=== PATIENT | female | born 1950 | race Caucasian/White ===

== ENCOUNTER → 2023-07-26 08:16 | Outpatient (REF) | payer MEDICARE, OTHER, SELFPAY | LOC: RAD 08:16 | PROVIDERS: ATTENDING PHYSICIAN Internal Medicine; FAMILY PHYSICIAN Internal Medicine | DX: R10.9 Unspecified abdominal pain (principal); K57.30 Diverticulosis of large intestine without perforation or abscess without bleeding; R10.30 Lower abdominal pain, unspecified | CPT/HCPCS: 74280 ==

== ENCOUNTER → 2024-01-27 10:53 | Outpatient (REF) | payer MEDICARE, OTHER, SELFPAY | LOC: WDC 10:53 | PROVIDERS: ATTENDING PHYSICIAN Obstetrics & Gynecology Gynecology; FAMILY PHYSICIAN Internal Medicine | DX: Z12.31 Encounter for screening mammogram for malignant neoplasm of breast (principal) | CPT/HCPCS: 77063; 77067 ==

== ENCOUNTER → 2024-03-13 07:18 | Outpatient (REF) | payer MEDICARE, OTHER, SELFPAY ==
[2024-03-13 09:46] LABS: % Eosinophils 4.7 % (0-6); % Immature Granulocytes 0.2 % (0-0.5); % Lymphocytes 28.8 % (20.5-51.1); % Monocytes 9.7 % (1.7-9.3); % Neutrophils 55.6 % (42.2-75.2); Absolute Basophils 0.1 10^3/uL (0-0.2); Absolute Eosinophils 0.2 10^3/uL (0-0.7); Absolute Lymphocytes 1.5 10^3/uL (1.2-3.4); Absolute Monocytes 0.5 10^3/uL (0.1-0.6); Absolute Neutrophils 2.8 10^3/uL (1.4-6.5); Hematocrit 37.5 % (37.0-47.0); Hemoglobin 13.1 g/dL (12.0-16.0); Mean Corp Hgb Conc. 34.9 g/dL (33.0-37.0); Mean Corpuscular Hgb 31.4 pg (27.0-31.0); Mean Corpuscular Volume 89.9 fL (81.0-99.0); Mean Platelet Volume 9.4 fL (7.4-10.4); Nucleated Red Blood Cells % 0 %; Platelet Count 279 10^3/uL (130-400); Red Blood Cell Count 4.17 10^6/uL (4.20-5.40); Red Cell Dist. Width 12.2 % (11.5-14.5); White Blood Cell Count 5.1 10^3/uL (4.8-10.8)
[2024-03-13 10:07] LABS: ALT (SGPT) 17 U/L (0-35); AST (SGOT) 27 U/L (14-36); Albumin 4.4 g/dl (3.5-5.0); Blood Urea Nitrogen 15 mg/dl (7-17); Calcium 9.9 mg/dl (8.4-10.2); Carbon Dioxide 28 mmol/L (22-30); Chloride 105 mmol/L (98-107); Glucose 96 mg/dl (70-99); HDL Cholesterol 65 mg/dl; LDL Cholesterol, Calculated 77 mg/dl; Phosphorus 3.6 mg/dl (2.5-4.5); Sodium 145 mmol/L (135-145); Total Cholesterol 162 mg/dl (50-199); Triglyceride 102 mg/dl (10-149); Very Low Density Lipoprotein 20 mg/dl (0-30); eGFR > 60.00
== END ==
LOC: HWLAB 07:18
PROVIDERS: ATTENDING PHYSICIAN Internal Medicine Cardiovascular Disease; FAMILY PHYSICIAN Internal Medicine
DX: R42 Dizziness and giddiness (principal); I44.7 Left bundle-branch block, unspecified; E78.2 Mixed hyperlipidemia
CPT/HCPCS: 36415; 80061; 80069; 84443; 84450; 84460; 85025

== ENCOUNTER → 2024-09-17 07:22 | Outpatient (REF) | payer MEDICARE, OTHER, SELFPAY ==
[2024-09-17 10:07] LABS: ALT (SGPT) 18 U/L (0-35); AST (SGOT) 25 U/L (14-36); Albumin 4.2 g/dl (3.5-5.0); Alkaline Phosphatase 67 U/L (38-126); Blood Urea Nitrogen 15 mg/dl (7-17); Carbon Dioxide 27 mmol/L (22-30); Chloride 109 mmol/L (98-107); Glucose 94 mg/dl (70-99); HDL Cholesterol 55 mg/dl; LDL Cholesterol, Calculated 87 mg/dl; Sodium 145 mmol/L (135-145); Total Bilirubin 0.9 mg/dl (0.2-1.3); Total Cholesterol 167 mg/dl (50-199); Total Protein 6.7 g/dl (6.3-8.2); Triglyceride 129 mg/dl (10-149); Very Low Density Lipoprotein 25 mg/dl (0-30); eGFR > 60.00
[2024-09-17 11:20] LABS: Glycohemoglobin (HgbA1c) 5.5 % (4.0-5.6)
== END ==
LOC: REG 07:22
PROVIDERS: ATTENDING PHYSICIAN Internal Medicine
DX: E78.5 Hyperlipidemia, unspecified (principal); R73.01 Impaired fasting glucose
CPT/HCPCS: 36415; 80053; 80061; 83036

== ENCOUNTER → 2024-10-15 06:35 | Outpatient (REF) | payer MEDICARE, OTHER, SELFPAY | LOC: RAD 06:35 | PROVIDERS: ATTENDING PHYSICIAN Surgery; FAMILY PHYSICIAN Internal Medicine | DX: K57.32 Diverticulitis of large intestine without perforation or abscess without bleeding (principal); R10.30 Lower abdominal pain, unspecified | CPT/HCPCS: 74177; Q9967 ==

== ENCOUNTER 2024-11-16 09:11 | Inpatient (IN) | payer MEDICARE, OTHER, SELFPAY ==
[2024-10-27 08:57] LABS: Hematocrit 38.7 % (37.0-47.0); Hemoglobin 13.2 g/dL (12.0-16.0); Mean Corp Hgb Conc. 34.1 g/dL (33.0-37.0); Mean Corpuscular Hgb 30.8 pg (27.0-31.0); Mean Corpuscular Volume 90.2 fL (81.0-99.0); Mean Platelet Volume 9.8 fL (7.4-10.4); Platelet Count 287 10^3/uL (130-400); Red Blood Cell Count 4.29 10^6/uL (4.20-5.40); Red Cell Dist. Width 12.2 % (11.5-14.5); White Blood Cell Count 5.7 10^3/uL (4.8-10.8)
[2024-10-27 09:17] LABS: ALT (SGPT) 16 U/L (0-35); AST (SGOT) 22 U/L (14-36); Albumin 4.7 g/dl (3.5-5.0); Alkaline Phosphatase 57 U/L (38-126); Blood Urea Nitrogen 15 mg/dl (7-17); Calcium 9.8 mg/dl (8.4-10.2); Carbon Dioxide 29 mmol/L (22-30); Chloride 107 mmol/L (98-107); Glucose 99 mg/dl (70-99); Potassium 4.2 mmol/L (3.5-5.1); Sodium 145 mmol/L (135-145); Total Protein 7.4 g/dl (6.3-8.2); eGFR > 60.00
[2024-10-27 13:27] VITALS: BMI 25.8
--- NOTE | 2024-10-27 16:28 | PTCARENOTE ---
Abn ECG, Dr. Kaur made aware, Cardiology clearance requested, Emily at Dr. Kasper's office notified.
[2024-11-16] VITALS (15 sets, daily range): BP systolic 122–163; BP diastolic 58–84; BMI 25.8; BMI 26.8
[2024-11-16] MEDS: NORMOSOL-R/PLASMALYTE-A 1000 IV (09:52)
[2024-11-16] MEDS: TYLENOL 1000 MG PO (09:53)
[2024-11-16] MEDS: ENTEREG 12 MG PO (09:53)
--- NOTE | 2024-11-16 10:30 | HP.FOC2 ---
Focused History & Physical
Chief Complaint
HPI:
Chief Complaint: Chronic sigmoid diverticulitis
HPI / Indication for Planned Procedure: Patient is a 74-year-old female with a progressive history of worsening intermittent lower abdominal pain and change in bowel habits. Over the past few years she has been experiencing episodes of significant
left lower abdominal cramping pains, bloating distention and erratic stools. These are typically acute in onset for 1 to 2 days up to a week with subsequent urgency to have bowel movements and multiple incomplete stools throughout the day of
varying consistency but tend to be softer looser in nature. She has undergone extensive GI evaluations and endoscopic findings have been notable for a rigid sigmoid colon with tight angulations requiring careful navigation and utilization of a
smaller caliber EGD scope felt to likely represent chronic diverticular inflammation.
After lengthy discussions with the patient regarding both operative and nonoperative management options the patient does wish to pursue sigmoidectomy please see office visit note for full details regarding her office conversations and proceeding
with today's operative procedure.
Relevant Past Medical History: Other (History of GERD, hyperlipidemia, depression, paroxysmal SVT, gastroparesis)
Relevant Social History: Negative
Relevant Family History: Negative
Relevant Past Surgical History: Positive for (Total hysterectomy, appendectomy, sinus surgery, hiatal hernia repair with toupee fundoplication, knee replacement)
Review of Systems
Review of Pertinent Systems: All Systems Negative
Medication
See Medication form for detailed medications: Yes
Medication List (including Herbals & OTC):
metoprolol succinate 25 mg tablet,extended release 24 hr 25 mg PO DAILY 11/29/20
rosuvastatin 5 mg tablet 5 mg PO DAILY 11/29/20
Prevagen 1 dose PO DAILY 11/09/24
ascorbic acid (vitamin C) 100 mg tablet (Vitamin C) 100 mg PO DAILY 11/09/24
bisacodyl 5 mg tablet,delayed release (Dulcolax (bisacodyl)) 5 mg PO ONCE 11/09/24
coenzyme Q10 30 mg capsule 30 mg PO DAILY 11/09/24
mirtazapine 15 mg tablet 15 mg PO HS 11/09/24
omeprazole 20 mg tablet,delayed release 20 mg PO DAILY 11/09/24
peg 3350-electrolytes 236 gram-22.74 gram-6.74 gram-5.86 gram solution (GaviLyte-G) 1 ml PO DIRECTED 11/09/24
Medications Reviewed: Yes
Allergies and Reactions
Patient has Allergies: Yes
Noted Allergies and Reactions:
Allergy/AdvReac Type Severity Reaction Status Date / Time
aripiprazole (From Abilify) Allergy Uncontrolled Verified 11/16/24 09:25
Tremors
Gadolinium-Containing Allergy Anaphylaxis Verified 11/16/24 09:25
Contrast Medi
hylan G-F 20 (From Synvisc) Allergy Swelling Verified 11/16/24 09:25
penicillin G Allergy Itching Unverified 11/16/24 09:25
Penicillins Allergy Itching Unverified 11/16/24 09:25
shellfish derived Allergy Anaphylaxis Verified 11/16/24 09:25
Neuroleptics Allergy Unknown Uncoded 11/16/24 09:25
Pertinent Physical Exam
All Other Systems: Negative
Head/Neck: Normal
Lungs: Normal
Heart: Normal
Abdomen: Normal
Extremities: Normal
Neurological: Normal
Diagnosis / Assessment
74-year-old female with intermittent chronic sigmoid diverticulitis presenting for sigmoidectomy
Plan / Procedure
Laparoscopic assisted sigmoidectomy
Anesthesia/Sedation to be done by Anesthesia Provider: Yes
--- NOTE | 2024-11-16 10:33 | W.SUR.PREOP ---
Pre-Operative Surgical Note
-
I have examined this patient prior to the performance of the scheduled procedure.
The patient's condition is unchanged from the time of the current History and
Physical and the patient is able to undergo the scheduled procedure.
--- NOTE | 2024-11-16 16:10 | W.IMMPOSTOP ---
Addendum entered and electronically signed by Hadley Kasper MD 11/16/24 16:31:
#[id number]
Original Note:
Surgical Immed Post Op Note
-
Primary Surgeon: Hadley Kasper MD
Assisting Surgeon: Marshall Ramirez MD, PGY 1
Pre-op Diagnosis: Chronic Sigmoid Diverticulitis
Post-op Diagnosis: Chronic Sigmois Diverticulitis; Extensive adhesions
Procedure Performed: Laparoscopic sigmoidectomy; laparoscopic extensive lysis of adhesions
Anesthesia Type: GETA +0.25% Marcaine
Specimen / Cultures: Sigmoid colon/none
Estimated Blood Loss: 26 mL
Complications: None immediate
Operative Findings: Innumerable adhesions including omentum to anterior abdominal wall and distal small bowel throughout the entire pelvis and adjacent to sigmoid colon and mesentery. Laparoscopic adhesiolysis/enterolysis required 2+ hours of
operative time until sigmoid colon was exposed and pelvis to proceed with sigmoidectomy. No enterotomies or serosal repairs required. Sigmoid colon redundant and adherent to itself with chronic adhesions and thickening suggestive of chronic
sigmoid diverticulitis. No abscess, no active infectious component. Sigmoidectomy completed. Mobilization up to splenic flexure and portions of but not complete mobilization of splenic flexure. 28 EEA colorectal end-to-end anastomosis. Air leak
test negative.
[2024-11-16 17:03] LABS: Glucose - Point of Care 125 mg/dl (70-99)
[2024-11-16] MEDS: NSS 1000 IV (18:32)
--- NOTE | 2024-11-16 18:53 | PTCARENOTE ---
Patient admitted to [facility] from PACU s/p laparoscopic sigmoidectomy. Patient drowsy but wakes to verbal stimuli, AAOX3, denies any pain at this time. Incision sites on abdomen well approximated with surgical adhesive present. Bob in place draining
clear yellow urine, NSS infusing through R wrist IV at 110ml/hr, SCDs in place. VSS. Patient NPO with sips. Patient oriented to room and call duckworth, at bedside updated on plan of care.
[2024-11-16] MEDS: REMERON 22.5 MG PO (22:43)
[2024-11-17] MEDS: NSS 1000 IV ×3 (03:20→23:41)
[2024-11-17 03:32] VITALS: BP 137/65
[2024-11-17] MEDS: MYLICON 80 MG PO (03:36)
[2024-11-17 06:11] LABS: Glucose - Point of Care 112 mg/dl (70-99)
--- NOTE | 2024-11-17 07:13 | W.PN.GS2 ---
Today's Communication / Plan
-
`
Assessment / Plan
-
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
h/o pSVT - metoprolol
AFVSS
doing well this AM
Plan: multimodal pain control options
encourage OOBTC/ambulation and IS use
start on clear liquid diet but monitor for return of post op GI function
reduce IVF rate
maintain crow until POD#2 d/t extensive pelvic dissection/adhesions
AM labs pending
lovenox/SCDs/ambulation for VTEp
protonix for GIp and h/o GERD
Subjective Data
-
Date of Service: November 17, 2024
pt seen and examined
doing well post op
mild post op incisional pain
no nausea
hungry
Objective Data
-
Intake and Output
11/16/24 11/17/24 11/18/24
06:59 06:59 06:59
Intake Total 200 / 200
Output Total 925 / 925
Balance -725 / -725
Intake:
IV fluids (Total) 200 / 200
Normosol 200 / 200
Output:
Urine, Crow 925 / 925
Vital Signs
Temp Pulse Resp BP Pulse Ox
99.1 F 93 16 137/65 97
11/17/24 03:32 11/17/24 03:32 11/17/24 03:32 11/17/24 03:32 11/17/24 03:32
Calcium 9.8 mg/dl (8.4-10.2) 10/27/24 07:53
Total Bilirubin 1.0 mg/dl (0.2-1.3) 10/27/24 07:53
AST 22 U/L (14-36) 10/27/24 07:53
ALT 16 U/L (0-35) 10/27/24 07:53
Alkaline Phosphatase 57 U/L (38-126) 10/27/24 07:53
Total Protein 7.4 g/dl (6.3-8.2) 10/27/24 07:53
Albumin 4.7 g/dl (3.5-5.0) 10/27/24 07:53
Physical Exam
-
NAD AAOx3
ABD: soft, ND, minimal incisional tenderness
incisions with glue dressings, no ecchymosis, no erythema
crow with clear yellow urine
[2024-11-17 07:16] LABS: Hematocrit 33.8 % (37.0-47.0); Hemoglobin 11.7 g/dL (12.0-16.0); Mean Corp Hgb Conc. 34.6 g/dL (33.0-37.0); Mean Corpuscular Volume 89.7 fL (81.0-99.0); Mean Platelet Volume 9.2 fL (7.4-10.4); Platelet Count 257 10^3/uL (130-400); Red Blood Cell Count 3.77 10^6/uL (4.20-5.40); Red Cell Dist. Width 12.2 % (11.5-14.5); White Blood Cell Count 16.3 10^3/uL (4.8-10.8)
[2024-11-17 07:45] VITALS: BP 126/59
[2024-11-17 07:45] LABS: Blood Urea Nitrogen 14 mg/dl (7-17); Carbon Dioxide 24 mmol/L (22-30); Chloride 111 mmol/L (98-107); Estimated Creatinine Clearance 49 ml/min; Glucose 105 mg/dl (70-99); Potassium 4.4 mmol/L (3.5-5.1); Sodium 142 mmol/L (135-145); eGFR > 60.00
[2024-11-17] MEDS: TOPROL XL 25 MG PO (08:05)
[2024-11-17] MEDS: NSS (PRESERVATIVE FREE) 10 ML IV (08:05)
[2024-11-17] MEDS: PROTONIX IV 40 MG IV (08:05)
[2024-11-17] MEDS: TYLENOL 650 MG PO (08:06)
[2024-11-17] MEDS: ENTEREG 12 MG PO ×2 (09:23→19:55)
--- NOTE | 2024-11-17 14:04 | CM ---
Reviewed the chart notes and spoke with the patient at the bedside. The patient resides in a three story home with two steps to enter. The patient reports no DME/VN/SNF. The patient confirmed her pharmacy of choice is [facility]. CM continues to
be available to patient/family and is monitoring medical plan for needs at discharge.
Plan: Discharge plans will depend on the patient's progress.
[2024-11-17 15:16] VITALS: BMI 26.8
[2024-11-17 15:35] VITALS: BP 124/60
[2024-11-17] MEDS: LOVENOX 40 MG SC (18:22)
[2024-11-17] MEDS: TORADOL 10 MG IV (19:56)
[2024-11-17] MEDS: REMERON 22.5 MG PO (21:00)
[2024-11-17 23:51] VITALS: BP 121/52
[2024-11-18 06:00] VITALS: BMI 24.7
[2024-11-18 06:24] LABS: Hematocrit 31.6 % (37.0-47.0); Hemoglobin 10.7 g/dL (12.0-16.0); Mean Corp Hgb Conc. 33.9 g/dL (33.0-37.0); Mean Corpuscular Hgb 31.1 pg (27.0-31.0); Mean Corpuscular Volume 91.9 fL (81.0-99.0); Mean Platelet Volume 9.9 fL (7.4-10.4); Platelet Count 235 10^3/uL (130-400); Red Blood Cell Count 3.44 10^6/uL (4.20-5.40); Red Cell Dist. Width 12.5 % (11.5-14.5); White Blood Cell Count 9.8 10^3/uL (4.8-10.8)
[2024-11-18 06:38] LABS: Blood Urea Nitrogen 13 mg/dl (7-17); Calcium 8.6 mg/dl (8.4-10.2); Carbon Dioxide 25 mmol/L (22-30); Chloride 114 mmol/L (98-107); Estimated Creatinine Clearance 49 ml/min; Glucose 87 mg/dl (70-99); Potassium 3.8 mmol/L (3.5-5.1); Sodium 143 mmol/L (135-145); eGFR > 60.00
--- NOTE | 2024-11-18 07:11 | W.PN.GS2 ---
Today's Communication / Plan
-
`
Assessment / Plan
-
Assessment: 74 y/o female POD#2 s/p lap sigmoidectomy and extensive BRENDA for sigmoid stricture - diverticular/adhesions
h/o pSVT - metoprolol
AFVSS
early signs of GI recovery
post op pain likely incisional or bowel cramps
acute blood loss anemia secondary to surgical blood loss and also dilutional effects of IVFs - repeat H&H tomorrow AM
remaining labs unremarkable
Plan: multimodal pain control options
continue OOBTC/ambulation and IS use
okay to shower today
full liquid diet today monitor for return of post op GI function; continue entereg
okay to stop IVFs with PO liquid intake
crow out - DTV
lovenox/SCDs/ambulation for VTEp
protonix for GIp and h/o GERD
Subjective Data
-
Date of Service: November 18, 2024
pt seen and examined
some colicky lower abdominal pain overnight and this AM
no nausea
tolerating clears and requesting next diet step
passing flatus regularly; no BMs yet
Objective Data
-
Intake and Output
11/17/24 11/18/24 11/19/24
06:59 06:59 06:59
Intake Total 200 / 200 1860 / 1860
Output Total 925 / 925 1345 / 1345
Balance -725 / -725 515 / 515
Intake:
Oral fluids 900 / 900
IV fluids (Total) 200 / 200 960 / 960
Normosol 200 / 200
Output:
Urine, Crow 925 / 925 1345 / 1345
Vital Signs
Temp Pulse Resp BP Pulse Ox
99.3 F 79 16 121/52 94
11/17/24 23:51 11/17/24 23:51 11/17/24 23:51 11/17/24 23:51 11/18/24 01:20
Lab Results
11/18/24 05:25
11/18/24 05:25
Calcium 8.6 mg/dl (8.4-10.2) 11/18/24 05:25
Total Bilirubin 1.0 mg/dl (0.2-1.3) 10/27/24 07:53
AST 22 U/L (14-36) 10/27/24 07:53
ALT 16 U/L (0-35) 10/27/24 07:53
Alkaline Phosphatase 57 U/L (38-126) 10/27/24 07:53
Total Protein 7.4 g/dl (6.3-8.2) 10/27/24 07:53
Albumin 4.7 g/dl (3.5-5.0) 10/27/24 07:53
Physical Exam
-
NAD AAOx3
ABD: softly distended, mild TTP lower abdomen, guarding only at incision sites
incision with glue dressings
Patient has a crow catheter: No
[2024-11-18 07:35] VITALS: BP 109/73
[2024-11-18] MEDS: TOPROL XL 25 MG PO (07:39)
[2024-11-18] MEDS: ENTEREG 12 MG PO ×2 (07:39→20:12)
[2024-11-18] MEDS: PROTONIX IV 40 MG IV (07:39)
[2024-11-18] MEDS: TORADOL 10 MG IV ×2 (07:39→14:52)
[2024-11-18] MEDS: NSS (PRESERVATIVE FREE) 10 ML IV (07:39)
--- NOTE | 2024-11-18 12:49 | CM ---
Reviewed the chart notes and spoke with the patient at the bedside. Diet advanced today to full liquid. CM continues to be available to patient/family and is monitoring medical plan for needs at discharge.
Plan: Discharge plan to home when medically stable. No needs anticipated at this time.
[2024-11-18 15:20] VITALS: BP 121/55
[2024-11-18] MEDS: LOVENOX 40 MG SC (17:01)
[2024-11-18] MEDS: FLUSH (NSS) 1 FLUSH IV (20:15)
[2024-11-18] MEDS: REMERON 22.5 MG PO (22:04)
[2024-11-18 23:04] VITALS: BP 120/61
[2024-11-19] MEDS: TORADOL 10 MG IV ×2 (05:03→13:05)
[2024-11-19] MEDS: FLUSH (NSS) 2 FLUSH IV (05:04)
[2024-11-19 07:24] VITALS: BP 122/62
--- NOTE | 2024-11-19 07:56 | W.PN.GS2 ---
Today's Communication / Plan
-
`
Assessment / Plan
-
Assessment: 74 y/o female POD#3 s/p lap sigmoidectomy and extensive BRENDA for sigmoid stricture - diverticular/adhesions
h/o pSVT - metoprolol
AFVSS
doing well with post op recovery, bowel function returning
Plan: multimodal pain control options
continue OOBTC/ambulation and IS use
okay to shower today
low residue diet; stop entereg
lovenox/SCDs/ambulation for VTEp
protonix for GIp and h/o GERD
probable d/c in the next 24hrs-26hrs
Subjective Data
-
Date of Service: November 19, 2024
pt seen and examined
multiple loose/liquid BM yesterday afternoon; none overnight
incisional pain with movement otherwise comfortable while resting
voiding
Objective Data
-
Intake and Output
11/18/24 11/19/24 11/20/24
06:59 06:59 06:59
Intake Total 1860 / 1860 960 / 960
Output Total 1345 / 1345
Balance 515 / 515 960 / 960
Intake:
Oral fluids 900 / 900 960 / 960
IV fluids (Total) 960 / 960
Output:
Urine, Bob 1345 / 1345
Other:
Number of approximated MODERATE 4
amounts of urine
Number of approximated LARGE 1
amounts of urine
Number of unmeasured liquid
stools
Rectum 7
Vital Signs
Temp Pulse Resp BP Pulse Ox
98.6 F 80 16 122/62 95
11/19/24 07:24 11/19/24 07:24 11/19/24 07:24 11/19/24 07:24 11/19/24 07:24
Lab Results
06/11/25 05:25
11/18/24 05:25
Calcium 8.6 mg/dl (8.4-10.2) 11/18/24 05:25
Total Bilirubin 1.0 mg/dl (0.2-1.3) 10/27/24 07:53
AST 22 U/L (14-36) 10/27/24 07:53
ALT 16 U/L (0-35) 10/27/24 07:53
Alkaline Phosphatase 57 U/L (38-126) 10/27/24 07:53
Total Protein 7.4 g/dl (6.3-8.2) 10/27/24 07:53
Albumin 4.7 g/dl (3.5-5.0) 10/27/24 07:53
Physical Exam
-
NAD AAOx3
ABD: soft, ND, only localized incisional tenderness
incisions with glue dressings, no erythema, no drainage
[2024-11-19] MEDS: PROTONIX 20 MG PO (08:05)
[2024-11-19] MEDS: TOPROL XL 25 MG PO (08:05)
[2024-11-19] MEDS: TYLENOL 650 MG PO (08:13)
--- NOTE | 2024-11-19 09:43 | CM ---
Addendum entered by Genia Reynoso RN 11/19/24 16:08:
IMM reviewed.
Original Note:
Reviewed the chart notes. Patient ambulating in hallway ad dorothy. The patient's diet advanced to low residue. CM continues to be available to patient/family and is monitoring medical plan for needs at discharge.
Plan: Discharge to home when medically stable. No needs anticipated at this time.
[2024-11-19 15:41] VITALS: BP 126/78
[2024-11-19] MEDS: LOVENOX 40 MG SC (17:00)
[2024-11-19] MEDS: REMERON 22.5 MG PO (21:02)
[2024-11-19 23:24] VITALS: BP 128/68
[2024-11-20 07:10] VITALS: BP 131/65
[2024-11-20] MEDS: TOPROL XL 25 MG PO (07:49)
[2024-11-20] MEDS: PROTONIX 20 MG PO (07:49)
--- NOTE | 2024-11-20 08:11 | W.PN.GS2 ---
Today's Communication / Plan
-
dispo planning
Assessment / Plan
-
Assessment: 74 y/o female POD#4 s/p lap sigmoidectomy and extensive BRENDA for sigmoid stricture - diverticular/adhesions
h/o pSVT - metoprolol
AFVSS
doing well with post op recovery, bowel function returning
Plan: multimodal pain control options
continue OOBTC/ambulation and IS use
okay to shower
low residue diet as tolerated
lovenox/SCDs/ambulation for VTEp
protonix for GIp and h/o GERD
d/c to home
Subjective Data
-
Date of Service: November 20, 2024
Patient seen and examined at bedside. Denies n/v. Passing flatus. Tolerating diet, but eating small amounts. Intermittent burning discomfort at Pfannenstiel incision. Passing flatus, had a formed BM last night.
Objective Data
-
Intake and Output
11/19/24 11/20/24 11/21/24
06:59 06:59 06:59
Intake Total 960 / 960 600 / 600
Balance 960 / 960 600 / 600
Intake:
Oral fluids 960 / 960 600 / 600
Other:
Number of approximated MODERATE 4 5
amounts of urine
Number of approximated LARGE 1
amounts of urine
Number of unmeasured liquid
stools
Rectum 7
Vital Signs
Temp Pulse Resp BP Pulse Ox
98.9 F 81 17 128/68 95
11/19/24 23:24 11/19/24 23:24 11/19/24 23:24 11/19/24 23:24 11/19/24 23:24
Lab Results
11/18/24 05:25
11/18/24 05:25
Calcium 8.6 mg/dl (8.4-10.2) 11/18/24 05:25
Total Bilirubin 1.0 mg/dl (0.2-1.3) 10/27/24 07:53
AST 22 U/L (14-36) 10/27/24 07:53
ALT 16 U/L (0-35) 10/27/24 07:53
Alkaline Phosphatase 57 U/L (38-126) 10/27/24 07:53
Total Protein 7.4 g/dl (6.3-8.2) 10/27/24 07:53
Albumin 4.7 g/dl (3.5-5.0) 10/27/24 07:53
Physical Exam
-
NAD AAOx3
ABD: soft, ND, only localized incisional tenderness
incisions with glue dressings, no erythema, no drainage, mild ecchymosis
--- NOTE | 2024-11-20 08:15 | W.DS.TRANS ---
Addendum entered and electronically signed by RAKAN Bermudez 11/20/24 09:39:
dictated #[id number]
Original Note:
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
-
Discharge Instructions:
Sleep Apnea Risk Low
Discharge Diagnosis/Procedures Laparoscopic sigmoidectomy
Diet As tolerated,Low Fiber
Additional Diets Smaller meals initially after surgery. Low
fiber foods for the first couple weeks.
Activity No strenuous activity
Additional Activity No lifting over 20 pounds for 4 to 6 weeks
postoperatively. Routine daily activities,
walking, standing, stairs are all okay as
tolerated.
Driving Restrictions No driving for 1 week
Bathing Restrictions OK to Shower
Wound Care Glue at surgical sites typically peels off in 2
to 3 weeks
Instructions:
Stand-Alone Forms:
Changes to Home Medications: No
Discharge Medications:
DC Medications w/original date entered in [facility]
metoprolol succinate 25 mg tablet,extended release 24 hr 25 mg PO DAILY Blood Pressure 11/29/20
rosuvastatin 5 mg tablet 5 mg PO DAILY High Cholesterol 11/29/20
Prevagen 1 dose PO DAILY Supplement 11/09/24
ascorbic acid (vitamin C) 100 mg tablet (Vitamin C) 100 mg PO DAILY Supplement 11/09/24
coenzyme Q10 30 mg capsule 30 mg PO DAILY Supplement 11/09/24
mirtazapine 15 mg tablet 22.5 mg PO HS Mental Health/Anxiety 11/09/24
omeprazole 20 mg tablet,delayed release 20 mg PO DAILY GERD 11/09/24
acetaminophen 325 mg tablet 650 mg (2 x 325 mg) PO Q4HPRN PRN mild pain #1 tab 11/20/24
ibuprofen 200 mg tablet 400 - 600 mg (2 - 3 x 200 mg) PO Q6HPRN PRN moderate pain #1 tab 11/20/24
oxycodone 5 mg tablet 5 mg PO Q4HPRN PRN breakthrough/severe pain #8 tabs 11/20/24
Home Medication Changes
Pending Results: No
--- NOTE | 2024-11-20 09:39 | CM ---
MD entered order for discharge.
Spoke with pt she said she was ready for discharge today to home.
Her yesenia Padilla will drive her home today .
Offered VN she declined need.
PLAN Home no needs
[2024-11-20] MEDS: TYLENOL 650 MG PO (09:56)
== END 2024-11-20 10:03 | disposition home or self-care (01) | DRG 330 ==
LOC: 2 NORTH 09:11
PROVIDERS: ADMITTING PHYSICIAN Surgery; FAMILY PHYSICIAN Internal Medicine; REFERRING PHYSICIAN Internal Medicine Cardiovascular Disease
PROC: 0DTN4ZZ Resection of Sigmoid Colon, Percutaneous Endoscopic Approach (ICD-10-PCS; 2024-11-16)
PROC: 0DNU4ZZ Release Omentum, Percutaneous Endoscopic Approach (ICD-10-PCS; 2024-11-16)
DX: K57.32 Diverticulitis of large intestine without perforation or abscess without bleeding (principal); D62 Acute posthemorrhagic anemia; E78.5 Hyperlipidemia, unspecified; Z90.710 Acquired absence of both cervix and uterus; Z96.659 Presence of unspecified artificial knee joint; Z88.0 Allergy status to penicillin; K21.9 Gastro-esophageal reflux disease without esophagitis; N73.6 Female pelvic peritoneal adhesions (postinfective)
CPT/HCPCS: 88307; 36415; 80048; 80053; 82962; 85027; 86850; 86900; 86901; 93005; J1335

== ENCOUNTER 2024-11-26 08:33 | Inpatient (IN) | payer MEDICARE, OTHER, SELFPAY ==
[2024-11-23] VITALS (13 sets, daily range): BP systolic 114–165; BP diastolic 58–93; BMI 26.2; BMI 26.3
--- NOTE | 2024-11-23 08:04 | ED.GENMED ---
History of Present Illness
<Toshia Bustos HEALTHCARE ECONOMICS MANAGER - Last Filed: 11/23/24 18:10>
General
Chief Complaint: Post Operative Problem(s)
Source: patient and physician
Exam Limitations: none
Time Seen by Provider: 11/23/24 08:03
Nursing documentation reviewed up to this point in time: agreed with
History of Present Illness
History of Present Illness:
74 yo female w hx of HTN, HLD, MVP, BBB, GERD, gastroparesis, Seratonin syndrome, anxiety/depression, appendectomy, hysterectomy, Lap sigmoidectomy 11/16/24 for rigid sigmoid colon/sigmoid stricture and years of difficulty moving bowels, is here for
sudden onset yesterday a.m. of nausea, sweating, profuse watery non bloody diarrhea. Denies fever. Has had pain across upper abdomen, worse centrally 'like a stomach ache.' Has not vomited.
Past History
<Toshia Bustos, HEALTHCARE ECONOMICS MANAGER - Last Filed: 11/23/24 18:10>
Past History
ED Past Medical History: GERD, HTN, Hypercholesterolemia, Psychiatric (Anxiety/depression) and Other (Diverticulitis)
ED Past Surgical History: Appendectomy, Bowel resection, Cardiac and Orthopedic
Social History
Tobacco: Non-smoker
Alcohol: None
Personal:
Living: with family
Review of Systems
<Toshia Bustos HEALTHCARE ECONOMICS MANAGER - Last Filed: 11/23/24 18:10>
Review of Systems
Allergies reviewed?: Yes
All Other Systems: ROS reviewed and negative except as documented in HPI and ROS
Constitutional: Denies fever or chills
Respiratory: Denies trouble breathing
Cardiac: Denies chest pain
ABD/GI: Reports abdominal pain, nausea and diarrhea; Denies vomiting, bloody stools or black stools
: Denies dysuria, difficulty voiding or urgency
Musculoskeletal: Reports no symptoms
Skin: Reports no symptoms
Neurological: Reports no symptoms
Phy Exam
<Toshia Bustos, HEALTHCARE ECONOMICS MANAGER - Last Filed: 11/23/24 18:10>
Physical Exam
Physical Exam:
GENERAL: No acute distress. A&Ox3.
CONSTITUTIONAL: Afebrile.
EYES: clear, conjunctivae normal
ENMT: moist mucus membranes, Pharynx nl
RESPIRATORY: Regular respirations, nonlabored, lungs clear.
CARDIOVASCULAR: Regular rate and rhythm, no murmurs, no rubs.
GI: Soft, mildly rotund, tender mid upper abdomen, normal BS
MUSCULOSKELETAL: Moves with ease. Well perfused.
SKIN: Warm, dry, pale. Abdominal incisions healing well.
PSYCH: Normal mood and affect. Well kept, interactive and appropriate
NEUROLOGIC: Awake, alert and oriented. No focal neurological deficits
Course
<Toshia Bustos, HEALTHCARE ECONOMICS MANAGER - Last Filed: 11/23/24 18:10>
Orders/Labs/Results
Orders:
Orders
11/23/24 Breakfast
NPO
Allow oral meds: Yes
Allow clear liquids: Sips of Clears
11/23/24 08:17
Complete Blood Count/With Diff Urgent
Comprehensive Metabolic Panel Urgent
11/23/24 08:29
Iohexol [Omnipaque] See Protocol PO NOW STA
11/23/24 08:30
0.9% Sodium Chloride 1000 ml [Nss] 1,000 ml IV BOLUS
Ondansetron Injectable [Zofran] 4 mg IV NOW STA
11/23/24 08:37
Lipase Urgent
11/23/24 10:27
Urinalysis Reflex To Culture Urgent
Date Specimen was Collected: 11/23/24
Time Specimen was Collected: 10:26
Urine Microscopic Reflex Cult Urgent
Urine Culture Urgent
ELEAZAR Source: U
Specimen Description:
Date Specimen was Collected: 11/23/24
Time Specimen was Collected: 10:26
11/23/24 10:30
CT Abd/pel W Iv And Oral Contr Urgent
Comment:
Reason For Exam: PLEASE INCLUDE RECTAL CONTRAST
11/23/24 10:43
STOOL [C difficile Antigen & Toxins] Urgent
ELEAZAR Source: Feces/Stool
Specimen Description:
Date Specimen was Collected: 11/23/24
Time Specimen was Collected: 10:39
Stool Culture Urgent
ELEAZAR Source: Feces/Stool
Specimen Description:
Date Specimen was Collected: 11/23/24
Time Specimen was Collected: 10:39
11/23/24 13:59
Admit Patient As Directed
Co-Sign Provider:
Level of Care: Observation services
Assign to:: Medical/Surgical
Physician / Group: Dr. Penn
Diagnosis: Partial small bowel obstruction
Code Status As Directed
Resuscitation Status: Full Code
HYDROmorphone [Dilaudid] 0.5 mg IV Q2HPRN PRN
Ketorolac [Toradol] 10 mg IV Q6HPRN PRN
Metoprolol Xl [Toprol Xl] 25 mg PO NOW STA
Activity As Directed
Activity Level: Out of Bed-Early Mobility
Intake/ Output As Directed
Frequency: Per unit guidelines
Vital Signs As Directed
Frequency: Per unit guidelines
PRN Pain Medication Management As Directed
May give lesser potent ordered pain med per pt: Yes
preference::
Protocol:: Medication orders for pain may be administered in a
manner that supports deferring to patient preference
when the pt is:
- Requesting an ordered lesser potent pain medication.
Least to most potent pain medications are defined
as: acetaminophen < NSAID < tramadol < opioids
(morphine, oxycodone, hydromorphone).
- Requesting a lesser dose of the same medication IF
ORDERED.
- Requesting a less intrusive route of administration
if both routes are prescribed by the provider (PO <
IV).
11/23/24 14:00
Normosol (Mult Electrolytes) [Normosol-R/Plasmalyte-A] 1,000 ml IV 100 mls/hr
Pneumatic Compression Sleeves As Directed
Type: Thigh high
DX Deep Vein Thrombosis Video Routine
11/23/24 14:30
Ondansetron Injectable [Zofran] 4 mg IV Q6HPRN PRN
11/23/24 15:00
0.9% Sodium Chloride [Nss (Preservative Free)] 10 ml IV DAILY
Pantoprazole [Protonix IV] 40 mg IV DAILY
11/23/24 16:00
Acetaminophen [Tylenol] 650 mg PO Q4HWA
11/23/24 20:00
Heparin 5,000 units SC Q12
11/23/24 22:00
Mirtazapine [Remeron] 22.5 mg PO HS
11/24/24 06:41
Basic Metabolic Panel IN AM
Complete Blood Count/With Diff IN AM
Magnesium IN AM
Phosphorus IN AM
11/25/24 06:00
Basic Metabolic Panel IN AM
Complete Blood Count/With Diff IN AM
11/26/24 06:00
Basic Metabolic Panel IN AM
Complete Blood Count/With Diff IN AM
Abnormal Lab Results
11/23/24 11/23/24
08:17 10:27
WBC 14.3 H 10^3/uL
(4.8-10.8)
Absolute Neuts (auto) 11.4 H 10^3/uL
(1.4-6.5)
Absolute Monos (auto) 0.9 H 10^3/uL
(0.1-0.6)
Neutrophils % 79.4 H %
(42.2-75.2)
Lymphocytes % 9.5 L %
(20.5-51.1)
Chloride 109 H mmol/L
(98-107)
Carbon Dioxide 21 L mmol/L
(22-30)
BUN 26 H mg/dl
(7-17)
Glucose 134 H mg/dl
(70-99)
Urine Ketones 3+ A
(Negative)
Ur Occult Blood Reflex 4+ A
(Negative)
Leukocyte Esterase Rfl 1+ A
(Negative)
Urine RBC 3-6 A /HPF
(0-2)
Urine Albumin (Reflex) 2+ A
(Neg - Trace)
11/23/24 08:17
11/23/24 08:17
Vital Signs
Initial and Last Documented VS:
Initial Vital Signs
Temp Pulse Resp BP Pulse Ox
98.1 F 118 18 145/69 95
11/23/24 07:52 11/23/24 07:52 11/23/24 07:52 11/23/24 07:52 11/23/24 07:52
Last Documented Vital Signs
Temp Pulse Resp BP Pulse Ox
98.4 F 88 18 129/59 93
11/24/24 07:25 11/24/24 07:25 11/24/24 07:25 11/24/24 07:25 11/24/24 07:25
And Rescue Fire Fighter Crash Fire consulted with Physician
And Rescue Fire Fighter Crash Fire consulted with physician?: Yes
Name of Physician Consulted: Lisbeth
<Angelika Bob MD - Last Filed: 11/24/24 13:59>
Orders/Labs/Results
Orders:
Orders
11/23/24 Breakfast
NPO
Allow oral meds: Yes
Allow clear liquids: Sips of Clears
11/23/24 08:17
Complete Blood Count/With Diff Urgent
Comprehensive Metabolic Panel Urgent
11/23/24 08:29
Iohexol [Omnipaque] See Protocol PO NOW STA
11/23/24 08:30
0.9% Sodium Chloride 1000 ml [Nss] 1,000 ml IV BOLUS
Ondansetron Injectable [Zofran] 4 mg IV NOW STA
11/23/24 08:37
Lipase Urgent
11/23/24 10:27
Urinalysis Reflex To Culture Urgent
Date Specimen was Collected: 11/23/24
Time Specimen was Collected: 10:26
Urine Microscopic Reflex Cult Urgent
Urine Culture Urgent
ELEAZAR Source: U
Specimen Description:
Date Specimen was Collected: 11/23/24
Time Specimen was Collected: 10:26
11/23/24 10:30
CT Abd/pel W Iv And Oral Contr Urgent
Comment:
Reason For Exam: PLEASE INCLUDE RECTAL CONTRAST
11/23/24 10:43
STOOL [C difficile Antigen & Toxins] Urgent
ELEAZAR Source: Feces/Stool
Specimen Description:
Date Specimen was Collected: 11/23/24
Time Specimen was Collected: 10:39
Stool Culture Urgent
ELEAZAR Source: Feces/Stool
Specimen Description:
Date Specimen was Collected: 11/23/24
Time Specimen was Collected: 10:39
11/23/24 13:59
Admit Patient As Directed
Co-Sign Provider:
Level of Care: Observation services
Assign to:: Medical/Surgical
Physician / Group: Dr. Penn
Diagnosis: Partial small bowel obstruction
Code Status As Directed
Resuscitation Status: Full Code
HYDROmorphone [Dilaudid] 0.5 mg IV Q2HPRN PRN
Ketorolac [Toradol] 10 mg IV Q6HPRN PRN
Metoprolol Xl [Toprol Xl] 25 mg PO NOW STA
Activity As Directed
Activity Level: Out of Bed-Early Mobility
Intake/ Output As Directed
Frequency: Per unit guidelines
Vital Signs As Directed
Frequency: Per unit guidelines
PRN Pain Medication Management As Directed
May give lesser potent ordered pain med per pt: Yes
preference::
Protocol:: Medication orders for pain may be administered in a
manner that supports deferring to patient preference
when the pt is:
- Requesting an ordered lesser potent pain medication.
Least to most potent pain medications are defined
as: acetaminophen < NSAID < tramadol < opioids
(morphine, oxycodone, hydromorphone).
- Requesting a lesser dose of the same medication IF
ORDERED.
- Requesting a less intrusive route of administration
if both routes are prescribed by the provider (PO <
IV).
11/23/24 14:00
Normosol (Mult Electrolytes) [Normosol-R/Plasmalyte-A] 1,000 ml IV 100 mls/hr
Pneumatic Compression Sleeves As Directed
Type: Thigh high
DX Deep Vein Thrombosis Video Routine
11/23/24 14:30
Ondansetron Injectable [Zofran] 4 mg IV Q6HPRN PRN
11/23/24 15:00
0.9% Sodium Chloride [Nss (Preservative Free)] 10 ml IV DAILY
Pantoprazole [Protonix IV] 40 mg IV DAILY
11/23/24 16:00
Acetaminophen [Tylenol] 650 mg PO Q4HWA
11/23/24 20:00
Heparin 5,000 units SC Q12
11/23/24 22:00
Mirtazapine [Remeron] 22.5 mg PO HS
11/24/24 06:41
Basic Metabolic Panel IN AM
Complete Blood Count/With Diff IN AM
Magnesium IN AM
Phosphorus IN AM
11/25/24 06:00
Basic Metabolic Panel IN AM
Complete Blood Count/With Diff IN AM
11/26/24 06:00
Basic Metabolic Panel IN AM
Complete Blood Count/With Diff IN AM
Abnormal Lab Results
11/23/24 11/23/24
08:17 10:27
WBC 14.3 H 10^3/uL
(4.8-10.8)
Absolute Neuts (auto) 11.4 H 10^3/uL
(1.4-6.5)
Absolute Monos (auto) 0.9 H 10^3/uL
(0.1-0.6)
Neutrophils % 79.4 H %
(42.2-75.2)
Lymphocytes % 9.5 L %
(20.5-51.1)
Chloride 109 H mmol/L
(98-107)
Carbon Dioxide 21 L mmol/L
(22-30)
BUN 26 H mg/dl
(7-17)
Glucose 134 H mg/dl
(70-99)
Urine Ketones 3+ A
(Negative)
Ur Occult Blood Reflex 4+ A
(Negative)
Leukocyte Esterase Rfl 1+ A
(Negative)
Urine RBC 3-6 A /HPF
(0-2)
Urine Albumin (Reflex) 2+ A
(Neg - Trace)
11/23/24 08:17
11/23/24 08:17
Vital Signs
Initial and Last Documented VS:
Initial Vital Signs
Temp Pulse Resp BP Pulse Ox
98.1 F 118 18 145/69 95
11/23/24 07:52 11/23/24 07:52 11/23/24 07:52 11/23/24 07:52 11/23/24 07:52
Last Documented Vital Signs
Temp Pulse Resp BP Pulse Ox
98.4 F 88 18 129/59 93
11/24/24 07:25 11/24/24 07:25 11/24/24 07:25 11/24/24 07:25 11/24/24 07:25
<Toshia Bustos, HEALTHCARE ECONOMICS MANAGER - Last Filed: 11/23/24 18:10>
MDM/Problems Addressed
Differential Diagnosis Includes:
C diff diarrhea, post op infection, bowel obstruction, ileus
MDM/Problems Addressed:
74 yo female w hx of HTN, HLD, MVP, BBB, GERD, gastroparesis, Seratonin syndrome, anxiety/depression, appendectomy, hysterectomy, social no use and years of difficulty moving bowels, is here for sudden onset yesterday a.m. of nausea, sweating,
profuse watery non bloody diarrhea. Denies fever. Has had pain across upper abdomen, worse centrally 'like a stomach ache.' Has not vomited.
Afebrile, NAD
Dr. Bob in to evaluate
CBC: WBC 14.3
CMP: IVFs infusing of BUN 26, mild dehydration, otherwise unremarkable.
Lipase WNL
11:45 AM: CAT scan abdomen pelvis with p.o. IV and rectal content asked radiology read:
IMPRESSION:
1. Small bowel obstruction with transition in the right lower quadrant as above. Small volume associated free fluid.
2. Post sigmoidectomy with anastomosis. Rectal contrast crosses the anastomotic site as above. No extravasation of rectal contrast.
3. Hepatic fatty infiltration.
12:15 PM: Dr. Penn in, he will admit patient to his service with postop ileus. Patient remained stable. Comfortable.
<Toshia Bustos, HEALTHCARE ECONOMICS MANAGER - Last Filed: 11/23/24 18:10>
*Critical Care Note
Total Time (30-74mins, 75-104mins- exclusive of procedures): Not Applicable
ED Attending Note
<Toshia Bustos, HEALTHCARE ECONOMICS MANAGER - Last Filed: 11/23/24 18:10>
-
Portions of this chart may have been created with voice recognition software.� Occasional wrong word or��sound alike� substitutions may have occurred due to the inherent limitations of voice recognition software.
<Angelika Bob MD - Last Filed: 11/24/24 13:59>
ED Attending Note
Patient seen and examined by attending physician: Yes
I performed the substantive portion of visit, reviewed & personally made and approve the management plan that is documented in note by myself or ELICEO.: Yes
ED Attending Note:
74-year-old female presents emergency department with complaints of nausea, profuse nonbloody diarrhea, and persistent upper to mid abdominal discomfort that started gradually yesterday and continues. She denies associated vomiting, fever, chills,
back pain, chest pain, dyspnea, dizziness. Patient is status post sigmoidectomy approximately 1 week ago. On exam, mucous membranes slightly dry. She has mild tenderness to palpation noted in the supra umbilical/epigastric area, no rebound or
guarding, no masses felt. Labs and stool pending, may need CT, we started p.o. contrast in anticipation of possibility.
Discharge Plan
Departure
Patient Disposition: Admit
Date of Disposition: 11/23/24
Time of Disposition: 11:56
Admit to: Med/Surg
Presentation/result/management discussed w/ accepting /DO: Fili
Condition: Fair
Discharge Problem:
Ileus, postoperative
Interventions
Interventions:
*Risk Screen - Suicide Last Done: 11/23/24 07:52
*General Assessment Last Done: 11/23/24 07:52
*Neglect/Abuse Screening Last Done: 11/23/24 08:12
*ED- Fall Risk Assessment Last Done: 11/23/24 08:12
*ED COVID-19 Vaccine History Last Done: 11/23/24 08:12
*Nursing Disposition Last Done: 11/23/24 16:06
ED-Skin Assessment Last Done: 11/23/24 08:19
Discharge Date and Time
Discharge Date/Time: 11/23/24 16:07
[2024-11-23 08:28] LABS: % Basophils 0.4 % (0-2); % Eosinophils 3.9 % (0-6); % Immature Granulocytes 0.3 % (0-0.5); % Lymphocytes 9.5 % (20.5-51.1); % Monocytes 6.5 % (1.7-9.3); % Neutrophils 79.4 % (42.2-75.2); Absolute Basophils 0.1 10^3/uL (0-0.2); Absolute Eosinophils 0.6 10^3/uL (0-0.7); Absolute Lymphocytes 1.4 10^3/uL (1.2-3.4); Absolute Monocytes 0.9 10^3/uL (0.1-0.6); Absolute Neutrophils 11.4 10^3/uL (1.4-6.5); Hematocrit 40.8 % (37.0-47.0); Mean Corp Hgb Conc. 34.3 g/dL (33.0-37.0); Mean Corpuscular Hgb 30.6 pg (27.0-31.0); Mean Corpuscular Volume 89.3 fL (81.0-99.0); Mean Platelet Volume 9.4 fL (7.4-10.4); Nucleated Red Blood Cells % 0 %; Platelet Count 363 10^3/uL (130-400); Red Blood Cell Count 4.57 10^6/uL (4.20-5.40); Red Cell Dist. Width 12.3 % (11.5-14.5); White Blood Cell Count 14.3 10^3/uL (4.8-10.8)
[2024-11-23] MEDS: OMNIPAQUE 50 ML PO (08:43)
[2024-11-23] MEDS: NSS 1000 IV (08:44)
[2024-11-23] MEDS: ZOFRAN 4 MG IV (08:44)
[2024-11-23 09:08] LABS: ALT (SGPT) 21 U/L (0-35); AST (SGOT) 23 U/L (14-36); Albumin 4.4 g/dl (3.5-5.0); Alkaline Phosphatase 67 U/L (38-126); Blood Urea Nitrogen 26 mg/dl (7-17); Calcium 9.9 mg/dl (8.4-10.2); Carbon Dioxide 21 mmol/L (22-30); Chloride 109 mmol/L (98-107); Estimated Creatinine Clearance 42 ml/min; Glucose 134 mg/dl (70-99); Potassium 4.2 mmol/L (3.5-5.1); Sodium 141 mmol/L (135-145); Total Bilirubin 1.2 mg/dl (0.2-1.3); Total Protein 7.1 g/dl (6.3-8.2); eGFR 59.12
[2024-11-23 09:26] LABS: Lipase 68 U/L (23-300)
[2024-11-23 11:19] LABS: Urine Albumin 2+ (Neg - Trace); Urine Bilirubin Negative (Negative); Urine Character Clear (Clear); Urine Color Yellow; Urine Glucose Negative (Negative); Urine Ketone 3+ (Negative); Urine Leukocyte 1+ (Negative); Urine Nitrite Negative (Negative); Urine Occult Blood 4+ (Negative); Urine Specific Gravity 1.025 (<1.030); Urine Urobilinogen Negative (Neg - 1+)
[2024-11-23 11:44] LABS: Urine Amorphous Seen; Urine Squamous Cell 0-2 /LPF (Few)
[2024-11-23 11:45] LABS: Urine Calcium Oxalate Crystals Seen
[2024-11-23 11:46] LABS: Urine White Cell 0-2 /HPF (0-5)
[2024-11-23] MEDS: TOPROL XL 25 MG PO (14:12)
[2024-11-23] MEDS: NORMOSOL-R/PLASMALYTE-A 1000 IV (14:28)
[2024-11-23] MEDS: NSS (PRESERVATIVE FREE) 10 ML IV (14:28)
[2024-11-23] MEDS: PROTONIX IV 40 MG IV (14:29)
--- NOTE | 2024-11-23 16:04 | HPS.HSE ---
Family Physician
-
Family Physician: Bertha Khanna
Chief Complaint
-
Diarrhea
History of Present Illness
This is a 74-year-old female with a history of an appendectomy, hysterectomy and colonic stricture from diverticulitis status post laparoscopic sigmoidectomy on 11/16/2024 which was notable for a significant lysis of adhesions. Overall she was doing
well and had progressed to a regular diet however was eating fairly little at home when she started develop some nausea, sweating and profuse watery nonbloody diarrhea which she has had for the past 24 hours. She has not been able to keep liquids
down and her urine is becoming more concentrated. The patient denies Fever, Chest Pain, Shortness Of Breath, Vomiting, changes in urinary habits, unintentional weight loss.
Medical History
Past Medical History
Past Medical History: Reports Other (Hypertension, hyperlipidemia, MVP, bundle branch block, GERD, gastroparesis, serotonin syndrome, anxiety/depression)
Past Surgical History: Reports Other (Appendectomy, hysterectomy, laparoscopic sigmoidectomy with lysis of adhesions 11/16/24)
Social History
Tobacco: Non-smoker
Alcohol: None
Drug: None
Personal:
Living: With Family
Family History
Family History: Not pertinent
Allergies / Home Medications
Allergies reflects when Allergies were last updated in [facility].
Home Medications with original date entered in [facility]
Allergy/Medication List:
Abilify, gadolinium, penicillin
Review of Systems
-
A 12 point ROS was completed and negative except as noted: Yes
Physical Exam
Vital Signs
Vital Signs
Temp Pulse Resp BP Pulse Ox
98.6 F 89 18 144/66 95
11/23/24 15:17 11/23/24 15:17 11/23/24 15:17 11/23/24 15:17 11/23/24 15:17
Physical Exam
General: Well Developed
HEENT: NormoCephalic
Respiratory: Non Labored Respirations
GI: Soft, Non Tender and Distended
Laboratory Results
-
11/23/24 08:17
11/23/24 08:17
Laboratory Results
Total Bilirubin 1.2 mg/dl (0.2-1.3) 11/23/24 08:17
AST 23 U/L (14-36) 11/23/24 08:17
ALT 21 U/L (0-35) 11/23/24 08:17
Alkaline Phosphatase 67 U/L (38-126) 11/23/24 08:17
Lipase 68 U/L (23-300) 11/23/24 08:37
Data Reviewed
-
CT Scan: Image Personally Visualized and interpreted, Report Reviewed by me, Discussed with Physician, Discussed with Patient and Discussed with Family
Lab Data: Labs Reviewed by me, Discussed with Physician, Discussed with Patient and Discussed with Family
Impression/Plan
-
IMPRESSION: This is a 74-year-old female with a history of a hysterectomy and appendectomy who is 1 week out from a laparoscopic sigmoidectomy and extensive lysis of adhesions for diverticular stricture who presents with nausea and watery diarrhea.
Blood work fairly unremarkable consistent with dehydration and CT scan with p.o. and rectal contrast shows a partial small bowel obstruction versus more likely ileus.
PLAN:
Will admit for observation.
N.p.o., IV fluids, will place NG if patient vomits but will hold off for now.
Stool studies/C. difficile.
Home meds reordered.
Serial abdominal exams.
Patient and family agreeable to plan of care above.
[2024-11-23] MEDS: TYLENOL 650 MG PO ×2 (16:44→21:07)
--- NOTE | 2024-11-23 16:54 | PTCARENOTE ---
Pt arrived to 2S via stretcher, ambulated to bed AX1, gait steady. Full assessment completed. IVF infusing per order. Pt denies nausea/ pain at this time. 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 Awaiting thigh high SCDs from SPD. Pt instructed on
NPO status and to ring for assistance with ambulation. Bed locked and in the lowest position, safety maintained. Oriented to room and call duckworth.
[2024-11-23] MEDS: REMERON 22.5 MG PO (21:07)
[2024-11-23] MEDS: HEPARIN 5000 UNITS SC (21:08)
[2024-11-24] MEDS: NORMOSOL-R/PLASMALYTE-A 1000 IV ×3 (00:25→20:15)
[2024-11-24] MEDS: TYLENOL PO ×2 (00:26→05:11)
--- NOTE | 2024-11-24 07:04 | W.PN.GS2 ---
Today's Communication / Plan
-
`
Assessment / Plan
-
Assessment: 74 y/o female POD# 8 s/p lap sigmoidectomy with extensive BRENDA
readmitted with probable ileus vs early partial SBO
CT imaging personally reviewed - no radiographic signs of anastomotic leak, no post op fluid collections. moderate gastric and SB distention. thickened loop of SB in upper pelvic/lower abd region likley reflective of post op inflammation from SB
manipulation with lysis, no extraluminal air/free air to suggest enterotomy
AFVSS
improved symptoms with bowel rest and IVF hydration
AM labs pending
Plan: continue IVFs and supportive care
monitor for return of improving bowel function
follow up abdominal xray tomorrow AM to monitor for progression of oral contrast/bowel distention
clear liquids just for comfort but hold if any nausea/worsening abdominal pain or distention
SCDs/lovenox for VTEp
Subjective Data
-
Date of Service: November 24, 2024
pt seen and examined
generalized abdominal discomfort and bloating
one loose BM since ER; passing occasional flatus
no nausea, poor appetite
Objective Data
-
Intake and Output
11/23/24 11/24/24 11/25/24
06:59 06:59 06:59
Intake Total 1200 / 1200
Balance 1200 / 1200
Intake:
IV fluids (Total) 1200 / 1200
Other:
Number of approximated MODERATE 3
amounts of urine
Vital Signs
Temp Pulse Resp BP Pulse Ox
99.6 F 82 17 129/59 95
11/23/24 23:16 11/23/24 23:16 11/23/24 23:16 11/23/24 23:16 11/23/24 23:16
Calcium 9.9 mg/dl (8.4-10.2) 11/23/24 08:17
Total Bilirubin 1.2 mg/dl (0.2-1.3) 11/23/24 08:17
AST 23 U/L (14-36) 11/23/24 08:17
ALT 21 U/L (0-35) 11/23/24 08:17
Alkaline Phosphatase 67 U/L (38-126) 11/23/24 08:17
Total Protein 7.1 g/dl (6.3-8.2) 11/23/24 08:17
Albumin 4.4 g/dl (3.5-5.0) 11/23/24 08:17
Physical Exam
-
NAD AAOx3
ABD: soft but distended and tympanitic
mild TTP, no R/R/G
incisions with glue dressings, no erythema, no drainage
[2024-11-24 07:25] VITALS: BP 129/59
[2024-11-24 07:35] LABS: % Basophils 0.4 % (0-2); % Eosinophils 5.5 % (0-6); % Immature Granulocytes 0.2 % (0-0.5); % Lymphocytes 16.7 % (20.5-51.1); % Monocytes 8.9 % (1.7-9.3); % Neutrophils 68.3 % (42.2-75.2); Absolute Eosinophils 0.5 10^3/uL (0-0.7); Absolute Lymphocytes 1.5 10^3/uL (1.2-3.4); Absolute Monocytes 0.8 10^3/uL (0.1-0.6); Absolute Neutrophils 6.3 10^3/uL (1.4-6.5); Hematocrit 33.9 % (37.0-47.0); Hemoglobin 11.4 g/dL (12.0-16.0); Mean Corp Hgb Conc. 33.6 g/dL (33.0-37.0); Mean Corpuscular Hgb 30.3 pg (27.0-31.0); Mean Corpuscular Volume 90.2 fL (81.0-99.0); Mean Platelet Volume 9.6 fL (7.4-10.4); Nucleated Red Blood Cells % 0 %; Platelet Count 315 10^3/uL (130-400); Red Blood Cell Count 3.76 10^6/uL (4.20-5.40); Red Cell Dist. Width 12.4 % (11.5-14.5); White Blood Cell Count 9.2 10^3/uL (4.8-10.8)
[2024-11-24] MEDS: PROTONIX IV 40 MG IV (07:43)
[2024-11-24] MEDS: NSS (PRESERVATIVE FREE) 10 ML IV (07:43)
[2024-11-24 08:16] LABS: Blood Urea Nitrogen 22 mg/dl (7-17); Calcium 8.9 mg/dl (8.4-10.2); Carbon Dioxide 23 mmol/L (22-30); Chloride 108 mmol/L (98-107); Estimated Creatinine Clearance 46 ml/min; Glucose 74 mg/dl (70-99); Magnesium 1.8 mg/dl (1.6-2.3); Phosphorus 3.9 mg/dl (2.5-4.5); Potassium 4.2 mmol/L (3.5-5.1); Sodium 141 mmol/L (135-145); eGFR > 60.00
--- NOTE | 2024-11-24 10:10 | CM ---
CM following re: discharge planning.
Reviewed pt's chart, met with pt.
Pt is a 74 year old female,, admitted with OBS status and primary dx of SBO. OBS status explained to the pt, pt expressed her understanding, declined to sign, has a copy, JUDGE letter placed on chart.
Pt reports she lives with 2SH, 3 steps to enter, has 3 supportive children. 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 No DME, VN or SNF history.
PCP: Bertha Khanna
Pharmacy: [facility] [place]
D/C plan: home with anticipated no needs. Family to transport at discharge.
CM will follow with discharge plan updates as hospitalization progresses
[2024-11-24] MEDS: TORADOL 10 MG IV ×2 (15:08→21:12)
[2024-11-24 15:20] VITALS: BP 133/62
[2024-11-24] MEDS: ZOFRAN 4 MG IV (15:47)
[2024-11-24] MEDS: LOVENOX 40 MG SC (17:33)
[2024-11-24] MEDS: REMERON 22.5 MG PO (21:12)
[2024-11-24 23:25] VITALS: BP 124/60
--- NOTE | 2024-11-25 04:21 | DOWNTIME ---
Addendum entered by Laura Boo RN 11/25/24 14:07:
Correction to downtime 11/25/2024 from 0100 to 11/25/24 at 0415.
Original Note:
There was a [email or web address] Client Can Line Operator Downtime on 11/24/2024 from 0100 to 11/25/2024 at 0415. Downtime documentation of patient's care, including medication administrations, has been reconciled in the electronic record per guidelines. Refer to the
patient's paper chart under the miscellaneous tab to see printed paper medication records and downtime forms.
[2024-11-25] MEDS: NORMOSOL-R/PLASMALYTE-A 1000 IV (05:42)
[2024-11-25 06:23] LABS: % Basophils 0.4 % (0-2); % Eosinophils 4.8 % (0-6); % Immature Granulocytes 0.4 % (0-0.5); % Lymphocytes 13.8 % (20.5-51.1); % Monocytes 11.4 % (1.7-9.3); % Neutrophils 69.2 % (42.2-75.2); Absolute Eosinophils 0.4 10^3/uL (0-0.7); Absolute Monocytes 0.9 10^3/uL (0.1-0.6); Absolute Neutrophils 5.2 10^3/uL (1.4-6.5); Hematocrit 32.7 % (37.0-47.0); Mean Corp Hgb Conc. 33.6 g/dL (33.0-37.0); Mean Corpuscular Hgb 30.4 pg (27.0-31.0); Mean Corpuscular Volume 90.3 fL (81.0-99.0); Mean Platelet Volume 9.4 fL (7.4-10.4); Nucleated Red Blood Cells % 0 %; Platelet Count 290 10^3/uL (130-400); Red Blood Cell Count 3.62 10^6/uL (4.20-5.40); Red Cell Dist. Width 12.1 % (11.5-14.5); White Blood Cell Count 7.5 10^3/uL (4.8-10.8)
[2024-11-25 06:48] LABS: Blood Urea Nitrogen 16 mg/dl (7-17); Calcium 8.7 mg/dl (8.4-10.2); Carbon Dioxide 24 mmol/L (22-30); Chloride 107 mmol/L (98-107); Estimated Creatinine Clearance 52 ml/min; Glucose 84 mg/dl (70-99); Potassium 3.9 mmol/L (3.5-5.1); Sodium 139 mmol/L (135-145); eGFR > 60.00
--- NOTE | 2024-11-25 07:12 | W.PN.GS2 ---
Today's Communication / Plan
-
`
Assessment / Plan
-
Assessment: 74 y/o female readmitted with probable ileus vs early partial SBO
POD# 9 s/p lap sigmoidectomy with extensive BRENDA
CT imaging personally reviewed - no radiographic signs of anastomotic leak, no post op fluid collections. moderate gastric and SB distention. thickened loop of SB in upper pelvic/lower abd region likley reflective of post op inflammation from SB
manipulation with lysis, no extraluminal air/free air to suggest enterotomy
AFVSS
persistent ileus symptoms
Plan: adjusted maintenance IVFs
continue current supportive care
monitor for return of improving bowel function
follow up abdominal xray to monitor for progression of oral contrast/bowel distention
clear liquids just for comfort but hold if any nausea/worsening abdominal pain or distention
SCDs/lovenox for VTEp
Subjective Data
-
Date of Service: November 25, 2024
pt seen and examined
passing flatus and belching; 3 BMs over the last 24hrs, loose but not watery diarrhea
abdominal pain/discomfort still present but stable
nausea at times
julianne some clear liquids for comfort
Objective Data
-
Intake and Output
11/24/24 11/25/24 11/26/24
06:59 06:59 06:59
Intake Total 1200 / 1200 360 / 360
Balance 1200 / 1200 360 / 360
Intake:
Oral fluids 360 / 360
IV fluids (Total) 1200 / 1200
Other:
Number of approximated MODERATE 3 1
amounts of urine
Vital Signs
Temp Pulse Resp BP Pulse Ox
99.7 F 78 17 124/60 95
11/24/24 23:25 11/24/24 23:25 11/24/24 23:25 11/24/24 23:25 11/24/24 23:25
Lab Results
11/25/24 05:42
11/25/24 05:43
Calcium 8.7 mg/dl (8.4-10.2) 11/25/24 05:43
Phosphorus 3.9 mg/dl (2.5-4.5) 11/24/24 06:41
Magnesium 1.8 mg/dl (1.6-2.3) 11/24/24 06:41
Total Bilirubin 1.2 mg/dl (0.2-1.3) 11/23/24 08:17
AST 23 U/L (14-36) 11/23/24 08:17
ALT 21 U/L (0-35) 11/23/24 08:17
Alkaline Phosphatase 67 U/L (38-126) 11/23/24 08:17
Total Protein 7.1 g/dl (6.3-8.2) 11/23/24 08:17
Albumin 4.4 g/dl (3.5-5.0) 11/23/24 08:17
Physical Exam
-
NAD AAOx3
ABD: distended and tympany on exam. lower abdominal tenderness on palpation but no rebound
incision sites with glue dressings, no erythema
[2024-11-25 07:35] VITALS: BP 144/67
[2024-11-25] MEDS: PROTONIX IV 40 MG IV (08:57)
[2024-11-25] MEDS: NSS (PRESERVATIVE FREE) 10 ML IV (08:58)
[2024-11-25] MEDS: D5/0.45%NSS with KCL 20 MEQ 1000 IV (08:58)
--- NOTE | 2024-11-25 14:52 | CM ---
Ileus vs partial SBO, IV/Toradol, clear liquids. OBS status. DIscharge POC: Anticipate home with no needs.
[2024-11-25 15:32] VITALS: BP 148/67
[2024-11-25] MEDS: LOVENOX 40 MG SC (17:35)
[2024-11-25] MEDS: TORADOL 10 MG IV (21:01)
[2024-11-25] MEDS: REMERON 22.5 MG PO (21:09)
[2024-11-25] MEDS: ZOFRAN 4 MG IV (21:11)
[2024-11-25 23:00] VITALS: BP 134/65
[2024-11-26] MEDS: D5/0.45%NSS with KCL 20 MEQ 1000 IV ×2 (00:49→14:11)
[2024-11-26 06:17] LABS: % Basophils 0.3 % (0-2); % Eosinophils 4.7 % (0-6); % Immature Granulocytes 0.3 % (0-0.5); % Lymphocytes 10.9 % (20.5-51.1); % Monocytes 12.1 % (1.7-9.3); % Neutrophils 71.7 % (42.2-75.2); Absolute Eosinophils 0.4 10^3/uL (0-0.7); Absolute Lymphocytes 0.8 10^3/uL (1.2-3.4); Absolute Monocytes 0.9 10^3/uL (0.1-0.6); Absolute Neutrophils 5.4 10^3/uL (1.4-6.5); Hematocrit 31.9 % (37.0-47.0); Hemoglobin 10.9 g/dL (12.0-16.0); Mean Corp Hgb Conc. 34.2 g/dL (33.0-37.0); Mean Corpuscular Hgb 30.4 pg (27.0-31.0); Mean Corpuscular Volume 89.1 fL (81.0-99.0); Nucleated Red Blood Cells % 0 %; Platelet Count 305 10^3/uL (130-400); Red Blood Cell Count 3.58 10^6/uL (4.20-5.40); White Blood Cell Count 7.5 10^3/uL (4.8-10.8)
[2024-11-26 06:23] LABS: Blood Urea Nitrogen 11 mg/dl (7-17); Calcium 8.6 mg/dl (8.4-10.2); Carbon Dioxide 25 mmol/L (22-30); Chloride 107 mmol/L (98-107); Estimated Creatinine Clearance 60 ml/min; Glucose 119 mg/dl (70-99); Potassium 3.7 mmol/L (3.5-5.1); Sodium 136 mmol/L (135-145); eGFR > 60.00
[2024-11-26 07:35] VITALS: BP 133/64
[2024-11-26] MEDS: NSS (PRESERVATIVE FREE) 10 ML IV (08:14)
[2024-11-26] MEDS: PROTONIX IV 40 MG IV (08:14)
[2024-11-26 09:20] LABS: Magnesium 1.6 mg/dl (1.6-2.3); Phosphorus 2.6 mg/dl (2.5-4.5); Triglycerides 90 mg/dl (10-149)
--- NOTE | 2024-11-26 09:26 | W.PN.GS2 ---
Addendum entered and electronically signed by Hadley Kasper MD 11/26/24 09:58:
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
Single episode of bilious emesis this a.m.
Continues to pass flatus and has had multiple loose bowel movements -3 over the last 24 hours including overnight
No abdominal pain other than discomfort from bloating/distention
AFVSS
NAD AAO x 3
ABD: Remains distended but soft. Tympany on percussion. Mild generalized tenderness but no rebound rigidity or guarding.
Abdominal x-ray from yesterday reviewed. Continued air-fluid levels and gaseous distention of the stomach and small bowel. Small bowel distention slightly improved from CT imaging. Small amount of remaining oral contrast visualized in the
descending colon.
Assessment/plan: 74-year-old female readmitted with probable ileus status post lap sigmoidectomy with extensive lysis of adhesions
She also has a previous history of mild gastroparesis which may be contributing to nausea and emesis overnight as she is passing flatus and having loose bowel movements and radiographic imaging would overall suggest stability and possibly some
improvement.
Given patient is 10 days postop with poor nutritional intake we will place a PICC line and start TPN
Will also start on trial of Reglan 5 mg IV every 6 for potential improvement in gastric motility effects
Back down to n.p.o. except ice chips and sips for comfort but at this point we will continue to avoid NG tube unless worsening distention or recurrent vomiting.
Counseled patient
Continue current supportive care otherwise
Original Note:
Today's Communication / Plan
-
TPN
NPO
Assessment / Plan
-
Assessment: 74 y/o female readmitted with probable ileus vs early partial SBO
POD# 10 s/p lap sigmoidectomy with extensive BRENDA
11/23; CT imaging - no radiographic signs of anastomotic leak, no post op fluid collections. moderate gastric and SB distention. thickened loop of SB in upper pelvic/lower abd region likley reflective of post op inflammation from SB manipulation
with lysis, no extraluminal air/free air to suggest enterotomy
11/25: XR with mild improvement in SB distention
AFVSS
persistent ileus symptoms
Passing some flatus/stool but with episode of vomiting this am
Plan: adjusted maintenance IVFs
anticipate prolonged NPO, will plan to initiate TPN
check nutritional labs/consult nutrition
continue current supportive care
monitor for return of improving bowel function
NPO with sips and chips. Hold off on NGT at this point as she is passing some stool/flatus
SCDs/lovenox for VTEp
Subjective Data
-
Date of Service: November 26, 2024
Patient seen and examined at bedside with Dr. Kasper. Vomited this am, bile then brown emesis. Passing flatus/liquid stool as well. Denies abdominal pain but does feel bloated.
Objective Data
-
Intake and Output
11/25/24 11/26/24 11/27/24
06:59 06:59 06:59
Intake Total 360 / 360 2700 / 2700
Balance 360 / 360 2700 / 2700
Intake:
Oral fluids 360 / 360 780 / 780
IV fluids (Total) 1919 / 1919
Other:
Number of approximated MODERATE 1 4
amounts of urine
Vital Signs
Temp Pulse Resp BP Pulse Ox
99.3 F 82 20 133/64 96
11/26/24 07:35 11/26/24 07:35 11/26/24 07:35 11/26/24 07:35 11/26/24 07:35
Lab Results
11/26/24 05:18
11/26/24 05:18
Calcium 8.6 mg/dl (8.4-10.2) 11/26/24 05:18
Phosphorus 2.6 mg/dl (2.5-4.5) 11/26/24 05:18
Magnesium 1.6 mg/dl (1.6-2.3) 11/26/24 05:18
Total Bilirubin 1.2 mg/dl (0.2-1.3) 11/23/24 08:17
AST 23 U/L (14-36) 11/23/24 08:17
ALT 21 U/L (0-35) 11/23/24 08:17
Alkaline Phosphatase 67 U/L (38-126) 11/23/24 08:17
Total Protein 7.1 g/dl (6.3-8.2) 11/23/24 08:17
Albumin 4.4 g/dl (3.5-5.0) 11/23/24 08:17
Physical Exam
-
NAD AAOx3
ABD: distended and tympany on exam. lower abdominal tenderness on palpation but no rebound
incision sites with glue dressings, no erythema
[2024-11-26 09:57] VITALS: BMI 26.7
[2024-11-26] MEDS: MAGNESIUM SULFATE 102 GRAMS IV (10:26)
[2024-11-26 11:11] LABS: Prealbumin (Transthyretin) 12.8 mg/dl (17.6-36.0)
[2024-11-26 12:08] LABS: Glucose - Point of Care 101 mg/dl (70-99)
[2024-11-26] MEDS: NOVOLOG FLEXPEN-LOW RESISTANCE SC ×2 (12:14→18:01)
[2024-11-26] MEDS: REGLAN 5 MG IV ×2 (14:10→17:43)
--- NOTE | 2024-11-26 14:11 | PTCARENOTE ---
PICC ok for use per Debi SLOAN RN. Care ongoing.
--- NOTE | 2024-11-26 14:53 | CM ---
Picc placement with initiation of TPN. Transitioned to inpatient status. IMM signed.
[2024-11-26 15:30] VITALS: BP 138/60
[2024-11-26] MEDS: LOVENOX 40 MG SC (17:44)
[2024-11-26 18:02] LABS: Glucose - Point of Care 106 mg/dl (70-99)
[2024-11-26] MEDS: Parenteral Nutrition, Central 880 IV (21:13)
[2024-11-26] MEDS: REMERON 22.5 MG PO (21:15)
[2024-11-26] MEDS: ZOFRAN 4 MG IV (21:56)
[2024-11-26 23:00] VITALS: BP 146/66
[2024-11-27 00:17] LABS: Glucose - Point of Care 137 mg/dl (70-99)
[2024-11-27] MEDS: NOVOLOG FLEXPEN-LOW RESISTANCE SC ×4 (00:26→17:37)
[2024-11-27] MEDS: REGLAN 5 MG IV ×5 (00:26→23:22)
[2024-11-27 05:30] LABS: Hematocrit 31.5 % (37.0-47.0); Hemoglobin 10.9 g/dL (12.0-16.0); Mean Corp Hgb Conc. 34.6 g/dL (33.0-37.0); Mean Corpuscular Volume 89.5 fL (81.0-99.0); Mean Platelet Volume 9.5 fL (7.4-10.4); Platelet Count 299 10^3/uL (130-400); Red Blood Cell Count 3.52 10^6/uL (4.20-5.40); Red Cell Dist. Width 12.1 % (11.5-14.5); White Blood Cell Count 7.8 10^3/uL (4.8-10.8)
[2024-11-27 05:43] LABS: Glucose - Point of Care 125 mg/dl (70-99)
[2024-11-27 05:52] LABS: Blood Urea Nitrogen 8 mg/dl (7-17); Calcium 8.9 mg/dl (8.4-10.2); Carbon Dioxide 30 mmol/L (22-30); Chloride 108 mmol/L (98-107); Estimated Creatinine Clearance 70 ml/min; Glucose 125 mg/dl (70-99); Magnesium 1.8 mg/dl (1.6-2.3); Phosphorus 3.1 mg/dl (2.5-4.5); Potassium 3.7 mmol/L (3.5-5.1); Sodium 141 mmol/L (135-145); eGFR > 60.00
[2024-11-27 06:00] VITALS: BMI 27.0
[2024-11-27 07:45] VITALS: BP 120/54
[2024-11-27] MEDS: PROTONIX IV 40 MG IV (08:44)
[2024-11-27] MEDS: NSS (PRESERVATIVE FREE) 10 ML IV (08:45)
[2024-11-27 09:05] LABS: Glycohemoglobin (HgbA1c) 5.6 % (4.0-5.6)
--- NOTE | 2024-11-27 09:59 | W.PN.GS2 ---
Addendum entered and electronically signed by Hadley Kasper MD 11/27/24 11:58:
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 Agree with documented progress note.
At the moment Mrs. Mancilla is feeling a bit better than yesterday and last evening.
She had a single episode of emesis last evening which was bilious but she is attributing it to adverse effects of looking at her TPN
Continues to pass flatus and multiple liquid bowel movements
AFVSS
NAD AAO x 3
Abdomen remains distended but not tense, no tenderness
A/P: Stable symptoms of her moderate ileus
Continue TPN and bowel rest
Pending clinical course over the next 48 to 72 hours will likely reimage early next week with a small bowel follow-through contrast study unless clinically resolving prior.
Original Note:
Today's Communication / Plan
-
NPO/TPN
Assessment / Plan
-
Assessment: 74 y/o female readmitted with probable ileus vs early partial SBO
POD# 11 s/p lap sigmoidectomy with extensive BRENDA
11/23; CT imaging - no radiographic signs of anastomotic leak, no post op fluid collections. moderate gastric and SB distention. thickened loop of SB in upper pelvic/lower abd region likely reflective of post op inflammation from SB manipulation
with lysis, no extraluminal air/free air to suggest enterotomy
11/25: XR with mild improvement in SB distention
AFVSS
persistent ileus symptoms
Passing some flatus/stool but with episode of vomiting last night
Plan: anticipate prolonged NPO. Continue TPN
continue current supportive care
monitor for return of improving bowel function
NPO with sips and chips. May need NGT if continues to have n/v
SCDs/lovenox for VTEp
Subjective Data
-
Date of Service: November 27, 2024
Patient seen and examined at bedside with Dr. Kasper. Vomited around 10pm last night, bilious emesis. Passing some liquid stool. Some mild nausea today, no further vomiting. Minimal abdominal discomfort. Bloating persists.
Objective Data
-
Intake and Output
11/26/24 11/27/24 11/28/24
06:59 06:59 06:59
Intake Total 2700 / 2700 520 / 520
Output Total
Balance 2700 / 2700 519 / 519
Intake:
Oral fluids 780 / 780 360 / 360
IV fluids (Total) 1920 / 192 160 / 160
Output:
Emesis
Other:
Number of approximated MODERATE 4 3
amounts of urine
Number of unmeasured liquid
stools
Rectum 4 3
Vital Signs
Temp Pulse Resp BP Pulse Ox
99.3 F 87 16 120/54 100
11/27/24 07:45 11/27/24 07:45 11/27/24 07:45 11/27/24 07:45 11/27/24 07:45
Lab Results
11/27/24 05:03
11/27/24 05:03
Calcium 8.9 mg/dl (8.4-10.2) 11/27/24 05:03
Phosphorus 3.1 mg/dl (2.5-4.5) 11/27/24 05:03
Magnesium 1.8 mg/dl (1.6-2.3) 11/27/24 05:03
Total Bilirubin 1.2 mg/dl (0.2-1.3) 11/23/24 08:17
AST 23 U/L (14-36) 11/23/24 08:17
ALT 21 U/L (0-35) 11/23/24 08:17
Alkaline Phosphatase 67 U/L (38-126) 11/23/24 08:17
Total Protein 7.1 g/dl (6.3-8.2) 11/23/24 08:17
Albumin 4.4 g/dl (3.5-5.0) 11/23/24 08:17
Physical Exam
-
NAD AAOx3
ABD: distended and tympany on exam. lower abdominal tenderness on palpation but no rebound
incision sites with glue dressings, no erythema
--- NOTE | 2024-11-27 11:52 | CM ---
SP Lap sigmoidectomy .
Remains NPO.
Medicated for N/V.
TPN started.
Toradol for pain.
PLAN Dc plan on going
[2024-11-27 12:08] LABS: Glucose - Point of Care 132 mg/dl (70-99)
[2024-11-27 15:58] VITALS: BP 123/57
[2024-11-27] MEDS: LOVENOX 40 MG SC (17:13)
[2024-11-27 17:28] LABS: Glucose - Point of Care 120 mg/dl (70-99)
[2024-11-27] MEDS: REMERON 22.5 MG PO (21:00)
[2024-11-27] MEDS: Parenteral Nutrition, Central 1110 IV (21:00)
[2024-11-27 23:46] VITALS: BP 124/58
[2024-11-28 00:24] LABS: Glucose - Point of Care 141 mg/dl (70-99)
[2024-11-28] MEDS: NOVOLOG FLEXPEN-LOW RESISTANCE SC ×4 (00:30→18:19)
[2024-11-28 05:43] LABS: Blood Urea Nitrogen 17 mg/dl (7-17); Calcium 8.8 mg/dl (8.4-10.2); Carbon Dioxide 26 mmol/L (22-30); Chloride 110 mmol/L (98-107); Estimated Creatinine Clearance 67 ml/min; Glucose 115 mg/dl (70-99); Magnesium 1.9 mg/dl (1.6-2.3); Phosphorus 3.8 mg/dl (2.5-4.5); Potassium 3.7 mmol/L (3.5-5.1); Sodium 142 mmol/L (135-145); eGFR > 60.00
[2024-11-28 06:23] LABS: Glucose - Point of Care 137 mg/dl (70-99)
[2024-11-28] MEDS: REGLAN 5 MG IV ×4 (06:25→23:24)
[2024-11-28 07:14] VITALS: BMI 26.8
[2024-11-28 07:45] VITALS: BP 136/81
[2024-11-28] MEDS: NSS (PRESERVATIVE FREE) 10 ML IV (09:05)
[2024-11-28] MEDS: PROTONIX IV 40 MG IV (09:05)
--- NOTE | 2024-11-28 09:28 | W.PN.GS2 ---
Today's Communication / Plan
-
Out of bed and ambulate.
TPN reordered.
Assessment / Plan
-
Assessment: 74 y/o female readmitted with probable ileus vs early partial SBO
POD# 12 s/p lap sigmoidectomy with extensive BRENDA
11/23; CT imaging - no radiographic signs of anastomotic leak, no post op fluid collections. moderate gastric and SB distention. thickened loop of SB in upper pelvic/lower abd region likely reflective of post op inflammation from SB manipulation
with lysis, no extraluminal air/free air to suggest enterotomy
11/25: XR with mild improvement in SB distention
AFVSS
persistent ileus symptoms
Passing some flatus/stool but with episode of vomiting last night
Plan: anticipate prolonged NPO. Continue TPN
continue current supportive care
monitor for return of improving bowel function
NPO with sips and chips. May need NGT if continues to have n/v
SCDs/lovenox for VTEp
Time Spent
Total Time Spent with Patient (in minutes): 10
Subjective Data
-
Date of Service: November 28, 2024
Interval Events:
No acute events overnight. Slept well. Pain Controlled. Denies Nausea/Vomiting, +bowel function.
Objective Data
-
Intake and Output
11/27/24 11/28/24 11/29/24
06:59 06:59 06:59
Intake Total 520 / 520 444 / 444 534 / 534
Output Total
Balance 519 / 519 444 / 444 534 / 534
Intake:
Oral fluids 360 / 360
IV fluids (Total) 160 / 160
TPN/PPN 444 / 444 534 / 534
Output:
Emesis
Other:
Number of approximated MODERATE 3 5
amounts of urine
Number of approximated LARGE 1
amounts of urine
Number of unmeasured liquid
stools
Rectum 3
Vital Signs
Temp Pulse Resp BP Pulse Ox
98.6 F 81 18 136/81 97
11/28/24 07:45 11/28/24 07:45 11/28/24 07:45 11/28/24 07:45 11/28/24 07:45
Lab Results
11/27/24 05:03
11/28/24 04:43
Calcium 8.8 mg/dl (8.4-10.2) 11/28/24 04:43
Phosphorus 3.8 mg/dl (2.5-4.5) 11/28/24 04:43
Magnesium 1.9 mg/dl (1.6-2.3) 11/28/24 04:43
Total Bilirubin 1.2 mg/dl (0.2-1.3) 11/23/24 08:17
AST 23 U/L (14-36) 11/23/24 08:17
ALT 21 U/L (0-35) 11/23/24 08:17
Alkaline Phosphatase 67 U/L (38-126) 11/23/24 08:17
Total Protein 7.1 g/dl (6.3-8.2) 11/23/24 08:17
Albumin 4.4 g/dl (3.5-5.0) 11/23/24 08:17
Physical Exam
-
GENERAL/NEURO: Awake, Alert, no distress
CHEST: Unlabored breathing on RA
ABDOMEN: Soft, Non-Tender, ++Distended, incisions clean dry and intact.
Patient has a crow catheter: No
Patient has a central line: No
[2024-11-28 12:19] LABS: Glucose - Point of Care 136 mg/dl (70-99)
[2024-11-28 15:38] VITALS: BP 141/62
[2024-11-28] MEDS: LOVENOX 40 MG SC (17:22)
[2024-11-28 18:18] LABS: Glucose - Point of Care 119 mg/dl (70-99)
[2024-11-28] MEDS: Parenteral Nutrition, Central 1110 IV (20:05)
[2024-11-28] MEDS: REMERON 22.5 MG PO (21:05)
[2024-11-28 23:25] VITALS: BP 133/63
[2024-11-29 00:23] LABS: Glucose - Point of Care 133 mg/dl (70-99)
[2024-11-29] MEDS: NOVOLOG FLEXPEN-LOW RESISTANCE SC ×5 (00:25→23:56)
[2024-11-29] MEDS: REGLAN 5 MG IV ×4 (05:13→23:44)
[2024-11-29 05:59] LABS: Glucose - Point of Care 119 mg/dl (70-99)
[2024-11-29 06:06] VITALS: BMI 26.7
[2024-11-29 06:33] LABS: Blood Urea Nitrogen 19 mg/dl (7-17); Calcium 8.8 mg/dl (8.4-10.2); Carbon Dioxide 26 mmol/L (22-30); Chloride 111 mmol/L (98-107); Estimated Creatinine Clearance 70 ml/min; Glucose 118 mg/dl (70-99); Magnesium 1.9 mg/dl (1.6-2.3); Phosphorus 3.9 mg/dl (2.5-4.5); Sodium 143 mmol/L (135-145); eGFR > 60.00
[2024-11-29 07:00] VITALS: BP 121/59
[2024-11-29] MEDS: NSS (PRESERVATIVE FREE) 10 ML IV (07:29)
[2024-11-29] MEDS: PROTONIX IV 40 MG IV (07:29)
--- NOTE | 2024-11-29 09:44 | W.PN.GS2 ---
Today's Communication / Plan
-
X-ray today.
TPN reordered.
Assessment / Plan
-
Assessment: 74 y/o female readmitted with probable ileus vs early partial SBO
POD# 13 s/p lap sigmoidectomy with extensive BRENDA
11/23; CT imaging - no radiographic signs of anastomotic leak, no post op fluid collections. moderate gastric and SB distention. thickened loop of SB in upper pelvic/lower abd region likely reflective of post op inflammation from SB manipulation
with lysis, no extraluminal air/free air to suggest enterotomy
11/25: XR with mild improvement in SB distention
AFVSS
persistent ileus symptoms
Passing some flatus/stool but with episode of vomiting last night
Plan: Will obtain an x-ray today.
Anticipate prolonged NPO. Continue TPN
continue current supportive care
monitor for return of improving bowel function
NPO with sips and chips. May need NGT if continues to have n/v
SCDs/lovenox for VTEp
Time Spent
Total Time Spent with Patient (in minutes): 20
Subjective Data
-
Date of Service: November 29, 2024
Interval Events:
No acute events overnight. Slept well. Pain Controlled. Denies Nausea/Vomiting, +bowel function.
Objective Data
-
Intake and Output
11/28/24 11/29/24 11/30/24
06:59 06:59 06:59
Intake Total 444 / 444 534 / 534
Balance 444 / 444 534 / 534
Intake:
TPN/PPN 444 / 444 534 / 534
Other:
Number of approximated MODERATE 5 4
amounts of urine
Number of approximated LARGE 1
amounts of urine
How many times incontinent 2
MODERATE amount urine
Number of unmeasured liquid
stools
Rectum 4
Vital Signs
Temp Pulse Resp BP Pulse Ox
98.6 F 83 14 121/59 94
11/29/24 07:00 11/29/24 07:00 11/29/24 07:00 11/29/24 07:00 11/29/24 07:00
Lab Results
11/27/24 05:03
11/29/24 05:33
Calcium 8.8 mg/dl (8.4-10.2) 11/29/24 05:33
Phosphorus 3.9 mg/dl (2.5-4.5) 11/29/24 05:33
Magnesium 1.9 mg/dl (1.6-2.3) 11/29/24 05:33
Total Bilirubin 1.2 mg/dl (0.2-1.3) 11/23/24 08:17
AST 23 U/L (14-36) 11/23/24 08:17
ALT 21 U/L (0-35) 11/23/24 08:17
Alkaline Phosphatase 67 U/L (38-126) 11/23/24 08:17
Total Protein 7.1 g/dl (6.3-8.2) 11/23/24 08:17
Albumin 4.4 g/dl (3.5-5.0) 11/23/24 08:17
Physical Exam
-
GENERAL/NEURO: Awake, Alert, no distress
CHEST: Unlabored breathing on RA
ABDOMEN: Soft, Non-Tender, distended.
Patient has a crow catheter: No
Patient has a central line: No
[2024-11-29 12:12] LABS: Glucose - Point of Care 125 mg/dl (70-99)
[2024-11-29 15:00] VITALS: BP 145/69
[2024-11-29] MEDS: LOVENOX 40 MG SC (17:31)
[2024-11-29 18:11] LABS: Glucose - Point of Care 119 mg/dl (70-99)
[2024-11-29] MEDS: Parenteral Nutrition, Central 1110 IV (21:38)
[2024-11-29] MEDS: REMERON 22.5 MG PO (21:42)
[2024-11-29 23:15] VITALS: BP 117/54
[2024-11-29 23:54] LABS: Glucose - Point of Care 114 mg/dl (70-99)
[2024-11-30] MEDS: REGLAN 5 MG IV (05:11)
[2024-11-30 05:16] LABS: Glucose - Point of Care 112 mg/dl (70-99)
[2024-11-30] MEDS: NOVOLOG FLEXPEN-LOW RESISTANCE SC ×3 (05:17→17:49)
[2024-11-30 05:53] LABS: ALT (SGPT) 18 U/L (0-35); AST (SGOT) 21 U/L (14-36); Albumin 3.5 g/dl (3.5-5.0); Alkaline Phosphatase 48 U/L (38-126); Blood Urea Nitrogen 18 mg/dl (7-17); Carbon Dioxide 25 mmol/L (22-30); Chloride 109 mmol/L (98-107); Estimated Creatinine Clearance 70 ml/min; Glucose 111 mg/dl (70-99); Magnesium 1.9 mg/dl (1.6-2.3); Phosphorus 4.3 mg/dl (2.5-4.5); Potassium 4.2 mmol/L (3.5-5.1); Sodium 141 mmol/L (135-145); Total Bilirubin 0.5 mg/dl (0.2-1.3); Total Protein 5.9 g/dl (6.3-8.2); Triglycerides 126 mg/dl (10-149); eGFR > 60.00
[2024-11-30 06:45] VITALS: BMI 26.4
[2024-11-30 07:25] VITALS: BP 123/55
[2024-11-30] MEDS: NSS (PRESERVATIVE FREE) 10 ML IV (07:36)
[2024-11-30] MEDS: PROTONIX IV 40 MG IV (07:36)
--- NOTE | 2024-11-30 10:18 | W.PN.GS2 ---
Today's Communication / Plan
-
Small bowel follow-through today
Assessment / Plan
-
Assessment: 74 y/o female readmitted with probable ileus vs early partial SBO
POD# 14 s/p lap sigmoidectomy with extensive BRENDA
16; CT imaging - no radiographic signs of anastomotic leak, no post op fluid collections. moderate gastric and SB distention. thickened loop of SB in upper pelvic/lower abd region likely reflective of post op inflammation from SB manipulation
with lysis, no extraluminal air/free air to suggest enterotomy
11/25: XR with mild improvement in SB distention
AFVSS
persistent ileus symptoms
Passing some flatus/stool but with episode of vomiting last night
Plan: Will obtain a SBFT
Anticipate prolonged NPO. Continue TPN
continue current supportive care
monitor for return of improving bowel function
NPO with sips and chips. May need NGT if continues to have n/v
SCDs/lovenox for VTEp
Time Spent
Total Time Spent with Patient (in minutes): 20
Subjective Data
-
Date of Service: November 30, 2024
Interval Events:
No acute events overnight. Slept well. Pain Controlled. Denies Nausea/Vomiting, +bowel function.
Objective Data
-
Intake and Output
11/29/24 11/30/24 12/01/24
06:59 06:59 06:59
Intake Total 534 / 534 552 / 552
Balance 534 / 534 552 / 552
Intake:
TPN/PPN 534 / 534 552 / 552
Other:
Number of approximated MODERATE 4
amounts of urine
How many times incontinent 2 2
MODERATE amount urine
Number of unmeasured liquid
stools
Rectum 4
Vital Signs
Temp Pulse Resp BP Pulse Ox
98.6 F 80 16 123/55 94
11/30/24 07:25 11/30/24 07:25 11/30/24 07:25 11/30/24 07:25 11/30/24 07:25
Lab Results
11/27/24 05:03
11/30/24 04:56
Calcium 9.0 mg/dl (8.4-10.2) 11/30/24 04:56
Phosphorus 4.3 mg/dl (2.5-4.5) 11/30/24 04:56
Magnesium 1.9 mg/dl (1.6-2.3) 11/30/24 04:56
Total Bilirubin 0.5 mg/dl (0.2-1.3) 11/30/24 04:56
AST 21 U/L (14-36) 11/30/24 04:56
ALT 18 U/L (0-35) 11/30/24 04:56
Alkaline Phosphatase 48 U/L (38-126) 11/30/24 04:56
Total Protein 5.9 g/dl (6.3-8.2) L 11/30/24 04:56
Albumin 3.5 g/dl (3.5-5.0) 11/30/24 04:56
Physical Exam
-
GENERAL/NEURO: Awake, Alert, no distress
CHEST: Unlabored breathing on RA
ABDOMEN: Soft, Non-Tender, distended. Incisions clean dry and intact.
Patient has a crow catheter: No
Patient has a central line: No
--- NOTE | 2024-11-30 10:29 | CM ---
Addendum entered by Renata Kitchen 11/30/24 15:35:
Patient seen at bedside in [address] [place] [address]. Patient stated that she is hoping for updated information following today's tests. Patient eager for further information. CM will continue to follow for discharge planning needs.
Plan; home with VN/ watch for possible need for home tube feeding
Original Note:
Patient out of room when CM attempted to visit. will return to assess discharge plan at this time.
[2024-11-30 12:07] LABS: Glucose - Point of Care 136 mg/dl (70-99)
[2024-11-30 15:25] VITALS: BP 122/61
[2024-11-30] MEDS: LOVENOX 40 MG SC (17:37)
[2024-11-30 17:41] LABS: Glucose - Point of Care 127 mg/dl (70-99)
[2024-11-30] MEDS: Parenteral Nutrition, Central 1110 IV (21:05)
[2024-11-30] MEDS: REMERON 22.5 MG PO (21:10)
[2024-11-30 23:20] VITALS: BP 138/67
[2024-12-01] LABS: Glucose - Point of Care 142 mg/dl (70-99)
[2024-12-01 06:04] LABS: Hematocrit 38.4 % (37.0-47.0); Mean Corp Hgb Conc. 33.9 g/dL (33.0-37.0); Mean Corpuscular Hgb 30.7 pg (27.0-31.0); Mean Corpuscular Volume 90.8 fL (81.0-99.0); Mean Platelet Volume 9.1 fL (7.4-10.4); Platelet Count 425 10^3/uL (130-400); Red Blood Cell Count 4.23 10^6/uL (4.20-5.40); White Blood Cell Count 9.1 10^3/uL (4.8-10.8)
[2024-12-01 06:04] LABS: Glucose - Point of Care 114 mg/dl (70-99)
[2024-12-01] MEDS: NOVOLOG FLEXPEN-LOW RESISTANCE SC ×3 (06:20→17:09)
[2024-12-01 06:25] LABS: Blood Urea Nitrogen 29 mg/dl (7-17); Calcium 10.5 mg/dl (8.4-10.2); Carbon Dioxide 26 mmol/L (22-30); Chloride 112 mmol/L (98-107); Estimated Creatinine Clearance 52 ml/min; Glucose 124 mg/dl (70-99); Magnesium 2.2 mg/dl (1.6-2.3); Phosphorus 5.5 mg/dl (2.5-4.5); Sodium 146 mmol/L (135-145); eGFR > 60.00
[2024-12-01 06:28] VITALS: BMI 26.0
--- NOTE | 2024-12-01 07:19 | W.PN.GS2 ---
Addendum entered and electronically signed by Hadley Kasper MD 12/01/24 08:35:
TPN adjusted today
-increased total volume
-12hr cycle
-reduced NaCl and KPhos content
Original Note:
Today's Communication / Plan
-
`
Assessment / Plan
-
Assessment: 74 y/o female readmitted with ileus vs early partial SBO
POD# 15 s/p lap sigmoidectomy with extensive BRENDA (11/16/2024)
11/23; CT imaging - no radiographic signs of anastomotic leak, no post op fluid collections. moderate gastric and SB distention. thickened loop of SB in upper pelvic/lower abd region likely reflective of post op inflammation from SB manipulation
with lysis, no extraluminal air/free air to suggest enterotomy
11/25: XR with mild improvement in SB distention
11/30: SBFT without progression past proximal small bowel indicating persistent severe ileus vs early post op pSBO
AFVSS
denies vomiting
numerous liquid BMs post SBFT
Detailed discussions with patient and her at bedside this a.m. reviewing her yesterday's small bowel follow-through study and working diagnosis of ileus versus early postop partial small bowel obstruction.
We discussed rationale for continued nonoperative management as 2 weeks postop having undergone an extensive lysis of adhesions would carry high surgical risks for iatrogenic bowel injury and or subsequent delayed GI recovery without definitive
diagnosis of clear transition point of obstruction. In addition she continues with GI function with numerous liquid BMs.
In this circumstance recommend nonoperative management with TPN support. Given the persistence of her symptoms despite supportive care for hospitalization over the last week there is high likelihood that she will need prolonged TPN for an undefined
time.
Plan: follow up abdominal xray to monitor for progression of oral contrast
Anticipate prolonged NPO. Continue TPN - consult case management as likely will need to arrange home infusion services for TPN
- Will start cycling TPN after this bag
continue current supportive care
NPO with sips and chips for comfort
SCDs/lovenox for VTEp
Subjective Data
-
Date of Service: December 01, 2024
pt seen and examined
reports many loose BMs following SBFT study and overnight
mild nausea, no vomiting
no abdominal pain but uncomfortable d/t persistent distention
Objective Data
-
Intake and Output
11/30/24 12/01/24 12/02/24
06:59 06:59 06:59
Intake Total 552 / 552 240 / 240
Balance 552 / 552 240 / 240
Intake:
Oral fluids 240 / 240
TPN/PPN 552 / 552
Other:
Number of approximated MODERATE 2
amounts of urine
How many times incontinent 2
MODERATE amount urine
Vital Signs
Temp Pulse Resp BP Pulse Ox
98.6 F 90 16 138/67 95
11/30/24 23:20 11/30/24 23:20 11/30/24 23:20 11/30/24 23:20 11/30/24 23:20
Lab Results
12/01/24 05:54
12/01/24 05:54
Calcium 10.5 mg/dl (8.4-10.2) H D 12/01/24 05:54
Phosphorus 5.5 mg/dl (2.5-4.5) H 12/01/24 05:54
Magnesium 2.2 mg/dl (1.6-2.3) 12/01/24 05:54
Total Bilirubin 0.5 mg/dl (0.2-1.3) 11/30/24 04:56
AST 21 U/L (14-36) 11/30/24 04:56
ALT 18 U/L (0-35) 11/30/24 04:56
Alkaline Phosphatase 48 U/L (38-126) 11/30/24 04:56
Total Protein 5.9 g/dl (6.3-8.2) L 11/30/24 04:56
Albumin 3.5 g/dl (3.5-5.0) 11/30/24 04:56
Physical Exam
-
NAD AAOx3
ABD: distended, minimal tenderness, no R/R/G
incisions with glue dressings
[2024-12-01 07:25] VITALS: BP 134/68
--- NOTE | 2024-12-01 08:53 | CM ---
Reviewed the chart notes. CM consult for home cyclic TPN received. Clinicals faxed to [facility]. CM continues to be available to patient/family and is monitoring medical plan for needs at discharge.
Plan: Discharge to home with TPN.
[2024-12-01] MEDS: PROTONIX IV 40 MG IV (08:55)
[2024-12-01] MEDS: NSS (PRESERVATIVE FREE) 10 ML IV (08:57)
[2024-12-01 12:12] LABS: Glucose - Point of Care 154 mg/dl (70-99)
[2024-12-01] MEDS: NOVOLOG FLEXPEN-LOW RESISTANCE 1 UNITS SC (12:42)
[2024-12-01 15:20] VITALS: BP 140/69
[2024-12-01 17:09] LABS: Glucose - Point of Care 137 mg/dl (70-99)
--- NOTE | 2024-12-01 18:02 | PTCARENOTE ---
Cyclic TPN ordered, not per usual protocol. Witnessed [facility] Clinical Educator kimi text ordering provider for clarification, per provider order to be followed as entered. Provider to contact Pharmacy to change timing of blood glucose monitoring to
correlate with current cyclic TPN order and increase to moderate resistance corrective insulin. Awaiting orders to be entered, primary RN made aware of discussion with provider and plan.
[2024-12-01] MEDS: LOVENOX 40 MG SC (18:13)
[2024-12-01] MEDS: Parenteral Nutrition, Central 1500 IV (20:49)
[2024-12-01] MEDS: REMERON 22.5 MG PO (20:58)
[2024-12-01 22:04] LABS: Glucose - Point of Care 132 mg/dl (70-99)
[2024-12-01 23:20] VITALS: BP 123/53
[2024-12-02 00:05] LABS: Glucose - Point of Care 142 mg/dl (70-99)
[2024-12-02] MEDS: NOVOLOG FLEXPEN-LOW RESISTANCE SC ×4 (00:29→18:33)
[2024-12-02 05:23] LABS: Blood Urea Nitrogen 31 mg/dl (7-17); Calcium 9.2 mg/dl (8.4-10.2); Carbon Dioxide 20 mmol/L (22-30); Chloride 114 mmol/L (98-107); Estimated Creatinine Clearance 60 ml/min; Glucose 124 mg/dl (70-99); Potassium 4.6 mmol/L (3.5-5.1); Sodium 142 mmol/L (135-145); eGFR > 60.00
[2024-12-02 06:00] VITALS: BMI 26.2
[2024-12-02 06:20] LABS: Glucose - Point of Care 145 mg/dl (70-99)
--- NOTE | 2024-12-02 07:19 | W.PN.GS2 ---
Today's Communication / Plan
-
`
Assessment / Plan
-
Assessment: 74 y/o female readmitted with ileus vs early partial SBO
POD# 16 s/p lap sigmoidectomy with extensive BRENDA (11/16/2024)
6/16; CT imaging - no radiographic signs of anastomotic leak, no post op fluid collections. moderate gastric and SB distention. thickened loop of SB in upper pelvic/lower abd region likely reflective of post op inflammation from SB manipulation
with lysis, no extraluminal air/free air to suggest enterotomy
11/25: XR with mild improvement in SB distention
11/30: SBFT without progression past proximal small bowel indicating persistent severe ileus vs early post op pSBO
12/01 : XR -> progression of contrast throughout SB and into colon; stable generalized bowel distention
AFVSS
+fl and BMs
Plan: clear liquid diet for comfort
resumed metoprolol PO
continue mirtazapine
Anticipate prolonged limited PO intake (see note 12/01 for details)
Continue 12 hr cycled TPN
Accu checks and SSI while on TPN
SCDs/lovenox for VTEp
continue to monitor in hospital over the next 2-3 days for GI recovery and confirmation of need for assisted TPN support
Subjective Data
-
Date of Service: December 02, 2024
pt sleeping, awoke easily
states had a good day yesterday and sleep overnight
loose BMs, less watery
no nausea at all, no vomiting, julianne sip clears
denies abdominal pain
Objective Data
-
Intake and Output
12/01/24 12/02/24 12/03/24
06:59 06:59 06:59
Intake Total 240 / 240 2175 / 217
Balance 240 / 240 2175 / 2175
Intake:
Oral fluids 240 / 240 240 / 240
TPN/PPN 1935 / 1935
Other:
Number of approximated MODERATE 2 2
amounts of urine
Vital Signs
Temp Pulse Resp BP Pulse Ox
98.1 F 79 16 123/53 95
12/01/24 23:20 12/01/24 23:20 12/01/24 23:20 12/01/24 23:20 12/01/24 23:20
Lab Results
12/01/24 05:54
12/02/24 04:21
Calcium 9.2 mg/dl (8.4-10.2) 12/02/24 04:21
Phosphorus 5.5 mg/dl (2.5-4.5) H 12/01/24 05:54
Magnesium 2.2 mg/dl (1.6-2.3) 12/01/24 05:54
Total Bilirubin 0.5 mg/dl (0.2-1.3) 11/30/24 04:56
AST 21 U/L (14-36) 11/30/24 04:56
ALT 18 U/L (0-35) 11/30/24 04:56
Alkaline Phosphatase 48 U/L (38-126) 11/30/24 04:56
Total Protein 5.9 g/dl (6.3-8.2) L 11/30/24 04:56
Albumin 3.5 g/dl (3.5-5.0) 11/30/24 04:56
Physical Exam
-
NAD AAOx3
ABD: softer and less distended, still tympanitic on percussion
no tenderness on palpation
[2024-12-02 07:40] VITALS: BP 109/52
[2024-12-02] MEDS: PROTONIX IV 40 MG IV (08:50)
[2024-12-02] MEDS: NSS (PRESERVATIVE FREE) 10 ML IV (08:51)
[2024-12-02] MEDS: TOPROL XL 25 MG PO (08:51)
[2024-12-02 10:31] LABS: Glucose - Point of Care 112 mg/dl (70-99)
--- NOTE | 2024-12-02 11:03 | CM ---
Patient seen at bedside on . Patient stated she is going for shower and has no needs for CM at this time. Plan is for home with [facility] feedings and VN as needed. CM will continue to follow for discharge planning needs.
Plan; home with [facility] for feedings and VN as per medical treatment plan
[2024-12-02 15:17] VITALS: BP 121/58
[2024-12-02 18:27] LABS: Glucose - Point of Care 83 mg/dl (70-99)
[2024-12-02] MEDS: LOVENOX 40 MG SC (18:33)
[2024-12-02] MEDS: Parenteral Nutrition, Central 1500 IV (20:50)
[2024-12-02] MEDS: REMERON 22.5 MG PO (21:02)
[2024-12-02 22:07] LABS: Glucose - Point of Care 139 mg/dl (70-99)
[2024-12-02 23:19] VITALS: BP 113/49
[2024-12-02 23:50] LABS: Glucose - Point of Care 166 mg/dl (70-99)
[2024-12-02] MEDS: NOVOLOG FLEXPEN-LOW RESISTANCE 1 UNITS SC (23:56)
[2024-12-03 05:53] LABS: Glucose - Point of Care 136 mg/dl (70-99)
[2024-12-03 06:00] VITALS: BMI 26.2
[2024-12-03] MEDS: NOVOLOG FLEXPEN-LOW RESISTANCE SC ×3 (06:02→17:54)
[2024-12-03 06:24] LABS: Blood Urea Nitrogen 28 mg/dl (7-17); Carbon Dioxide 21 mmol/L (22-30); Chloride 111 mmol/L (98-107); Estimated Creatinine Clearance 60 ml/min; Sodium 139 mmol/L (135-145); eGFR > 60.00
[2024-12-03 06:34] LABS: Calcium 9.1 mg/dl (8.4-10.2); Glucose 116 mg/dl (70-99); Potassium 4.5 mmol/L (3.5-5.1)
[2024-12-03 07:40] VITALS: BP 129/55
[2024-12-03 08:07] LABS: Glucose - Point of Care 130 mg/dl (70-99)
[2024-12-03] MEDS: NSS (PRESERVATIVE FREE) 10 ML IV (08:23)
[2024-12-03] MEDS: TOPROL XL 25 MG PO (08:23)
[2024-12-03] MEDS: PROTONIX IV 40 MG IV (08:23)
--- NOTE | 2024-12-03 08:42 | W.PN.GS2 ---
Today's Communication / Plan
-
`
Assessment / Plan
-
Assessment: 74 y/o female readmitted with ileus vs early partial SBO
POD# 17 s/p lap sigmoidectomy with extensive BRENDA (11/16/2024)
6/16; CT imaging - no radiographic signs of anastomotic leak, no post op fluid collections. moderate gastric and SB distention. thickened loop of SB in upper pelvic/lower abd region likely reflective of post op inflammation from SB manipulation
with lysis, no extraluminal air/free air to suggest enterotomy
11/25: XR with mild improvement in SB distention
11/30: SBFT without progression past proximal small bowel indicating persistent severe ileus vs early post op pSBO
12/01 : XR -> progression of contrast throughout SB and into colon; stable generalized bowel distention
AFVSS
Improving subjective and objective signs of bowel function
Plan: Cautious trial on full liquid diet
metoprolol PO
mirtazapine PO
Anticipate prolonged limited PO intake (see note 12/01 for details)
Continue 12 hr cycled TPN -given improvement in liquid p.o. intake reduced total volume; increased NA acetate 10 meQ
Accu checks/SSI; Daily BMP while on TPN
SCDs/lovenox for VTEp
continue to monitor in hospital over the next 2-3 days for GI recovery and confirmation of need for terminal supervisor TPN support versus p.o.
Subjective Data
-
Date of Service: December 03, 2024
Patient seen and examined.
Overall reports that she continues to feel well and improved the last few days.
No further belching, no GERD/indigestion symptoms
Passing flatus frequently, bowel movements becoming semiformed and less frequent
Abdominal distention/tightness much improved
No abdominal pain
Objective Data
-
Intake and Output
12/02/24 12/03/24 12/04/24
06:59 06:59 06:59
Intake Total 2175 / 217 1534 / 1534
Balance 2175 / 217 1534 / 1534
Intake:
Oral fluids 240 / 240 240 / 240
TPN/PPN 1935 1294 / 1294
Other:
Number of approximated SMALL 3
amounts of urine
Number of approximated MODERATE 2 4
amounts of urine
Vital Signs
Temp Pulse Resp BP Pulse Ox
97.7 F 88 16 129/55 97
12/03/24 07:40 12/03/24 08:23 12/03/24 07:40 12/03/24 08:23 12/03/24 07:40
Lab Results
12/01/24 05:54
12/03/24 05:22
Calcium 9.1 mg/dl (8.4-10.2) 12/03/24 05:22
Phosphorus 4.0 mg/dl (2.5-4.5) 12/03/24 05:22
Magnesium 2.2 mg/dl (1.6-2.3) 12/01/24 05:54
Total Bilirubin 0.5 mg/dl (0.2-1.3) 11/30/24 04:56
AST 21 U/L (14-36) 11/30/24 04:56
ALT 18 U/L (0-35) 11/30/24 04:56
Alkaline Phosphatase 48 U/L (38-126) 11/30/24 04:56
Total Protein 5.9 g/dl (6.3-8.2) L 11/30/24 04:56
Albumin 3.5 g/dl (3.5-5.0) 11/30/24 04:56
Physical Exam
-
NAD AAO x 3
ABD generally soft, slightly distended. Tympany improving. Nontender. Surgical sites healed
[2024-12-03 10:09] LABS: Glucose - Point of Care 94 mg/dl (70-99)
[2024-12-03 12:42] LABS: Glucose - Point of Care 105 mg/dl (70-99)
--- NOTE | 2024-12-03 14:56 | CM ---
12 hour cycles for TPN with trial of full liquid diet. DIscharge POC: TPN at home with [facility] and Domo GUTIERREZ RN.
[2024-12-03 15:05] VITALS: BP 137/67
[2024-12-03 17:54] LABS: Glucose - Point of Care 101 mg/dl (70-99)
[2024-12-03] MEDS: LOVENOX 40 MG SC (17:56)
[2024-12-03] MEDS: Parenteral Nutrition, Central 1110 IV (20:50)
[2024-12-03] MEDS: REMERON 22.5 MG PO (21:10)
[2024-12-03 22:04] LABS: Glucose - Point of Care 140 mg/dl (70-99)
[2024-12-03 23:00] VITALS: BP 104/56
[2024-12-04 00:01] LABS: Glucose - Point of Care 160 mg/dl (70-99)
[2024-12-04] MEDS: NOVOLOG FLEXPEN-LOW RESISTANCE 1 UNITS SC ×2 (00:07→06:05)
[2024-12-04 03:13] VITALS: BMI 25.8
[2024-12-04 05:27] LABS: Blood Urea Nitrogen 26 mg/dl (7-17); Carbon Dioxide 21 mmol/L (22-30); Chloride 110 mmol/L (98-107); Estimated Creatinine Clearance 60 ml/min; Glucose 133 mg/dl (70-99); Potassium 4.3 mmol/L (3.5-5.1); Sodium 138 mmol/L (135-145); eGFR > 60.00
[2024-12-04 05:57] LABS: Glucose - Point of Care 175 mg/dl (70-99)
[2024-12-04 07:35] VITALS: BP 114/53
[2024-12-04 07:53] LABS: Glucose - Point of Care 150 mg/dl (70-99)
[2024-12-04] MEDS: PROTONIX IV 40 MG IV (08:39)
[2024-12-04] MEDS: TOPROL XL 25 MG PO (08:40)
[2024-12-04] MEDS: NSS (PRESERVATIVE FREE) 10 ML IV (08:40)
--- NOTE | 2024-12-04 10:19 | CM ---
Patient seen at bedside on . Patient continues on TPN awaiting physician to discuss. Patient would need tube feeds at home if unable to expand diet per physician assessment. CM will continue to follow for discharge planning needs.
Plan: home with [facility] pending medical treatment plan
[2024-12-04 10:57] LABS: Glucose - Point of Care 113 mg/dl (70-99)
--- NOTE | 2024-12-04 10:58 | W.PN.GS2 ---
Addendum entered and electronically signed by Hadley Kasper MD 12/04/24 11:36:
Patient seen and examined with surgical MANAGER PROGRAMMING.
Dislikes flavoring/taste of full liquid diet but tolerating it fine from a symptomatic standpoint
No nausea, no vomiting; no abdominal pain, no recurrent distention
Passing flatus regularly, no BM in last 24 hours
AFVSS
NAD AAO x 3
ABD: Softly protuberant, some tympany on percussion. No tenderness. Incisions well-healed.
A/P: Clinically resolving/improving ileus versus postop partial small bowel obstruction
Continued cautious dietary advancement -low fiber foods, small portions scattered throughout the day
Hold off on TPN this evening
Monitor for adequacy of dietary intake and bowel function
MiraLAX daily starting tomorrow as long as tolerating p.o. adequately without return of partial obstructive symptoms
Original Note:
Today's Communication / Plan
-
low fiber diet
Assessment / Plan
-
Assessment: 74 y/o female readmitted with ileus vs early partial SBO
POD# 18 s/p lap sigmoidectomy with extensive BRENDA (11/16/2024)
11/23; CT imaging - no radiographic signs of anastomotic leak, no post op fluid collections. moderate gastric and SB distention. thickened loop of SB in upper pelvic/lower abd region likely reflective of post op inflammation from SB manipulation
with lysis, no extraluminal air/free air to suggest enterotomy
11/25: XR with mild improvement in SB distention
11/30: SBFT without progression past proximal small bowel indicating persistent severe ileus vs early post op pSBO
12/01 : XR -> progression of contrast throughout SB and into colon; stable generalized bowel distention
AFVSS
Improving subjective and objective signs of bowel function
Plan: Cautious trial on low fiber diet
metoprolol PO
mirtazapine PO
will hold off on TPN tonight and follow on diet. anticipate restarting cycled tpn if not tolerating
SCDs/lovenox for VTEp
continue to monitor in hospital over the next few days for GI recovery and confirmation of need for intermediate TPN support versus p.o.
Subjective Data
-
Date of Service: December 04, 2024
Patient seen and examined at bedside with Dr. Kasper. Denies n/v. Tolerating full liquids although not very appetizing. Passing a lot of flatus, no bms yesterday or today. Denies pain.
Objective Data
-
Intake and Output
12/03/24 12/04/24 12/05/24
06:59 06:59 06:59
Intake Total 1534 / 1534 480 / 480
Balance 1534 / 1534 480 / 480
Intake:
Oral fluids 240 / 240 480 / 480
TPN/PPN 1294 / 1294
Other:
Number of approximated SMALL 3
amounts of urine
Number of approximated MODERATE 4 4
amounts of urine
Vital Signs
Temp Pulse Resp BP Pulse Ox
98.6 F 82 16 114/53 95
12/04/24 07:35 12/04/24 07:35 12/04/24 07:35 12/04/24 07:35 12/04/24 07:35
Lab Results
12/01/24 05:54
12/04/24 04:40
Calcium 9.0 mg/dl (8.4-10.2) 12/04/24 04:40
Phosphorus 4.0 mg/dl (2.5-4.5) 12/03/24 05:22
Magnesium 2.2 mg/dl (1.6-2.3) 12/01/24 05:54
Total Bilirubin 0.5 mg/dl (0.2-1.3) 11/30/24 04:56
AST 21 U/L (14-36) 11/30/24 04:56
ALT 18 U/L (0-35) 11/30/24 04:56
Alkaline Phosphatase 48 U/L (38-126) 11/30/24 04:56
Total Protein 5.9 g/dl (6.3-8.2) L 11/30/24 04:56
Albumin 3.5 g/dl (3.5-5.0) 11/30/24 04:56
Physical Exam
-
NAD AAO x 3
ABD generally soft, slightly distended. Tympany improving. Nontender. Surgical sites healed
[2024-12-04 15:30] VITALS: BP 117/48
[2024-12-04] MEDS: LOVENOX 40 MG SC (17:12)
[2024-12-04] MEDS: REMERON 22.5 MG PO (21:47)
[2024-12-04 23:00] VITALS: BP 112/51
[2024-12-05 06:00] VITALS: BMI 25.7
[2024-12-05 06:44] LABS: Blood Urea Nitrogen 26 mg/dl (7-17); Calcium 9.3 mg/dl (8.4-10.2); Carbon Dioxide 22 mmol/L (22-30); Chloride 110 mmol/L (98-107); Estimated Creatinine Clearance 52 ml/min; Glucose 95 mg/dl (70-99); Potassium 4.6 mmol/L (3.5-5.1); Sodium 138 mmol/L (135-145); eGFR > 60.00
[2024-12-05 08:00] VITALS: BP 113/54
[2024-12-05] MEDS: TOPROL XL 25 MG PO (09:48)
[2024-12-05] MEDS: NSS (PRESERVATIVE FREE) 10 ML IV (09:50)
[2024-12-05] MEDS: PROTONIX IV 40 MG IV (09:50)
--- NOTE | 2024-12-05 12:48 | W.PN.GS2 ---
Addendum entered and electronically signed by Raleigh Mercedes MD 12/05/24 16:34:
I saw and examined the patient.
The SILVICULTURE FORESTER's note was reviewed and I agree with the note.
Comment:
Tolerating diet with bowel function, exam benign; okay for discharge
Original Note:
Today's Communication / Plan
-
Continue diet
Dispo planning
Assessment / Plan
-
Assessment: 74 y/o female readmitted with ileus vs early partial SBO
POD# 19 s/p lap sigmoidectomy with extensive BRENDA (11/16/2024)
11/23; CT imaging - no radiographic signs of anastomotic leak, no post op fluid collections. moderate gastric and SB distention. thickened loop of SB in upper pelvic/lower abd region likely reflective of post op inflammation from SB manipulation
with lysis, no extraluminal air/free air to suggest enterotomy
11/25: XR with mild improvement in SB distention
11/30: SBFT without progression past proximal small bowel indicating persistent severe ileus vs early post op pSBO
12/01 : XR -> progression of contrast throughout SB and into colon; stable generalized bowel distention
AFVSS
Improving subjective and objective signs of bowel function
Tolerating diet
Plan: continue current diet
metoprolol PO
mirtazapine PO
SCDs/lovenox for VTEp
Tentative d/c later today vs tomorrow off TPN if continues to tolerate diet. If develops n/v/worsening distention will plan to d/c on cycled tpn early next week
Subjective Data
-
Date of Service: December 05, 2024
Patient seen and examined at bedside with Dr. Mercedes. Denies n/v. Tolerating regular diet. Passing flatus and had 4-5 bm's since last night. Denies pain.
Objective Data
-
Intake and Output
12/04/24 12/05/24 12/06/24
06:59 06:59 06:59
Intake Total 580 / 580 480 / 480
Balance 580 / 580 480 / 480
Intake:
Oral fluids 480 / 480 480 / 480
TPN/PPN 100 / 100
Other:
Number of approximated MODERATE 4 2
amounts of urine
Vital Signs
Temp Pulse Resp BP Pulse Ox
97.6 F 82 18 113/54 94
12/05/24 08:00 12/05/24 08:00 12/05/24 08:00 12/05/24 08:00 12/05/24 08:00
Lab Results
12/01/24 05:54
12/05/24 06:00
Calcium 9.3 mg/dl (8.4-10.2) 12/05/24 06:00
Phosphorus 4.0 mg/dl (2.5-4.5) 12/03/24 05:22
Magnesium 2.2 mg/dl (1.6-2.3) 12/01/24 05:54
Total Bilirubin 0.5 mg/dl (0.2-1.3) 11/30/24 04:56
AST 21 U/L (14-36) 11/30/24 04:56
ALT 18 U/L (0-35) 11/30/24 04:56
Alkaline Phosphatase 48 U/L (38-126) 11/30/24 04:56
Total Protein 5.9 g/dl (6.3-8.2) L 11/30/24 04:56
Albumin 3.5 g/dl (3.5-5.0) 11/30/24 04:56
Physical Exam
-
NAD AAO x 3
ABD generally soft, not distended. Nontender. Surgical sites healed
[2024-12-05 16:00] VITALS: BP 121/58
--- NOTE | 2024-12-05 16:16 | W.DS.TRANS ---
Addendum entered and electronically signed by RAKAN Bermudez 12/07/24 10:23:
dictated #[id number]
Original Note:
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
-
Discharge Instructions:
Discharge Diagnosis/Procedures Ileus versus early bowel obstruction
Recent robotic sigmoid resection
Diet As tolerated,Low Fiber
Activity No strenuous activity
Bathing Restrictions OK to Shower
Instructions:
Stand-Alone Forms:
Changes to Home Medications: No
Discharge Medications:
DC Medications w/original date entered in [email or web address]
metoprolol succinate 25 mg tablet,extended release 24 hr 25 mg PO DAILY Blood Pressure 11/29/20
rosuvastatin 5 mg tablet 5 mg PO DAILY High Cholesterol 11/29/20
Prevagen 1 cap PO DAILY Supplement 11/09/24
coenzyme Q10 30 mg capsule 30 mg PO DAILY Supplement 11/09/24
mirtazapine 15 mg tablet 22.5 mg PO HS Mental Health/Anxiety 11/09/24
omeprazole 20 mg tablet,delayed release 20 mg PO DAILY GERD 11/09/24
oxycodone 5 mg tablet 5 mg PO Q4HPRN PRN breakthrough/severe pain #8 tabs 11/20/24
acetaminophen 500 mg tablet 1,000 mg PO Q4HPRN PRN mild pain 11/23/24
ascorbic acid (vitamin C) 500 mg tablet (Vitamin C) 500 mg PO DAILY Supplement 11/23/24
metoclopramide HCl 5 mg tablet 5 mg PO ACHS #40 tabs 12/05/24
Home Medication Changes
Pending Results: No
--- NOTE | 2024-12-06 08:38 | CM ---
Pt discharged last night after hours
Per chart review, no dc needs noted
IMM not issued prior to dc
--- NOTE | 2024-12-06 08:41 | CM ---
Pt discharged day prior after hours
Per chart review, indep per nursing notes and picc removed/no TPN needs on dc
IMM was not issued
Per chart review, no dc needs noted
== END 2024-12-05 18:00 | disposition home or self-care (01) | DRG 390 ==
LOC: 2 SOUTH 08:33
PROVIDERS: Registered Nurse; ADMITTING PHYSICIAN Surgery; ATTENDING PHYSICIAN Surgery; EMERGENCY PHYSICIAN Emergency Medicine; FAMILY PHYSICIAN Internal Medicine
DX: K91.30 Postprocedural intestinal obstruction, unspecified as to partial versus complete (principal); Z90.710 Acquired absence of both cervix and uterus; I10 Essential (primary) hypertension; K21.9 Gastro-esophageal reflux disease without esophagitis; E78.00 Pure hypercholesterolemia, unspecified; F32.A Depression, unspecified; F41.9 Anxiety disorder, unspecified
CPT/HCPCS: 71045; 74018; 74019; 74177; 74250; 80048; 80053; 81003; 81015; 82962; 83036; 83690; 83735; 84100; 84134; 84478; 85025; 85027; 87045; 87046; 87086; 87324; 87427; 87449; 96361; 96374; 99285; Q9967

== ENCOUNTER → 2025-01-29 06:30 | Outpatient (REF) | payer MEDICARE, OTHER, SELFPAY | LOC: HWWDC 06:30 | PROVIDERS: ATTENDING PHYSICIAN Obstetrics & Gynecology Gynecology; FAMILY PHYSICIAN Internal Medicine | DX: Z12.31 Encounter for screening mammogram for malignant neoplasm of breast (principal) | CPT/HCPCS: 77063; 77067 ==

== ENCOUNTER → 2025-03-17 08:13 | Outpatient (REF) | payer MEDICARE, OTHER, SELFPAY | LOC: HWRCS 08:13 | PROVIDERS: ATTENDING PHYSICIAN Internal Medicine Cardiovascular Disease; FAMILY PHYSICIAN Internal Medicine | DX: I34.1 Nonrheumatic mitral (valve) prolapse (principal) | CPT/HCPCS: 93306 ==